=== PATIENT | female | born 1965 | race Caucasian/White ===

== ENCOUNTER 2018-01-11 15:21 | Emergency (ER) | payer MEDICAID ==
--- NOTE | 2018-01-11 16:16 | XRAY Report ---
EXAM: CHEST RADIOGRAPHY EXAM DATE: 01/11/2018 03:49 PM. CLINICAL HISTORY: Chest congestion. COMPARISON: 08/11/2008 and 12/09/2015. TECHNIQUE: 2 views. FINDINGS: Lungs/Pleura: No localized infiltrate, consolidation, effusion, or pneumothorax. Mediastinum: Heart and mediastinal contours are unremarkable. Other: Degenerative changes. Prominent carotid artery calcifications. IMPRESSION: 1. No acute disease. 2. Carotid calcifications; carotid duplex ultrasound is recommended. [facility] Referring Provider Line: [phone] SITE ID: [id number]
--- NOTE | 2018-01-11 17:35 | ED Physician Documentation ---
PD HPI ABD PAIN - Stated complaint Stated Complaint: ABD PX/BACK PX - Chief complaint Chief Complaint: General - History obtained from History obtained from: Patient - History of Present Illness Timing - onset: How many weeks ago (2) Timing - duration: Weeks (2) Timing - details: Gradual onset, Still present (she has had cough and congestion for 2 weeks, and having left lower abd pain as well. Seen by PMD and has had similar abd symptoms with then Dx of diverticulitis. Was treated empirically by PMD with Augmentin and has continued with both abd pain and the cough. Has been on the Augmentin about aweek now.), Waxing and waning Quality: Cramping, Aching, Pain Location: LLQ Radiation: Lower back. No: Left flank Improved by: No: Eating Worsened by: No: Eating Associated symptoms: Nausea, Other (cough). No: Fever, Vomiting, Diarrhea Similar symptoms before: Diagnosis (diverticulitis few times in the past that has felt like this. No prior lung problems.) Recently seen: Clinic Review of Systems Constitutional: denies: Fever, Chills Nose: denies: Rhinorrhea / runny nose, Congestion Throat: denies: Sore throat Cardiac: denies: Chest pain / pressure, Palpitations Respiratory: reports: Dyspnea, Cough. denies: Wheezing GI: reports: Abdominal Pain, Nausea. 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 Cardiovascular: Cardiac catheterization - Present Medications Home Medications: Ambulatory Orders Medication Instructions Recorded Confirmed Metformin HCl 500 mg PO BID 10/31/13 06/13/16 Omeprazole [PriLOSEC] 20 mg PO DAILY 10/31/13 06/13/16 Atorvastatin [Lipitor] 10 mg PO DAILY 04/09/14 06/13/16 Ibuprofen [Motrin] 800 mg PO Q8H PRN #30 tablet 12/09/15 06/13/16 Cephalexin [Keflex] 500 mg PO QID #24 capsule 06/13/16 Hydrocodone/Acetaminophen [[place] 1 each PO Q6H PRN #20 tablet 06/13/16 5-325 Tablet] Ibuprofen [Motrin] 600 mg PO TID #30 tab 06/13/16 Metoprolol Succinate [Toprol Xl] 1 tab ORAL DAILY 06/13/16 06/13/16 Metronidazole [Flagyl] 500 mg PO BID #14 tablet 06/13/16 Benzonatate [Tessalon] 100 mg PO TID PRN #25 capsule 01/11/18 Dexamethasone [Decadron] 4 mg PO DAILY #5 tablet 01/11/18 HYDROcod/ACETAM 5/325 [[place] 5/325] 1 tab PO Q6H PRN #15 tablet 01/11/18 Metronidazole [Flagyl] 500 mg PO BID #14 tablet 01/11/18 Ondansetron Odt [Zofran] 4 mg TL Q6H PRN #15 tablet 01/11/18 Sulfamethox/Trimeth 800/160 1 each PO BID #14 tablet 01/11/18 [Bactrim Ds 800/160] - Allergies Allergies/Adverse Reactions: Allergies Allergy/AdvReac Type Severity Reaction Status Date / Time fentanyl Allergy Intermediate Hives Verified 06/13/16 13:01 hydromorphone HCl * Allergy Unknown Verified 06/13/16 11:28 [From Dilaudid] - Social History Does the pt smoke?: No Smoking Status: Never smoker Does the pt drink ETOH?: Yes Does the pt have substance abuse?: No - Immunizations Immunizations are current?: Yes - POLST Patient has POLST: No PD ED PE NORMAL - Vitals Vital signs reviewed: Yes - General General: Alert and oriented X 3, No acute distress, Well developed/nourished - HEENT HEENT: Ears normal, Pharynx benign - Neck Neck: Supple, no meningeal sign, No adenopathy - Cardiac Cardiac: RRR, No murmur - Respiratory Respiratory: Clear bilaterally - Abdomen Abdomen: Normal bowel sounds, Soft, Non distended, No organomegaly, Other (some tenderness without guarding loeft lower to mid abdomen. ) - Female Female : Deferred - Rectal Rectal: Deferred - Back Back: No CVA TTP - Derm Derm: Normal color, Warm and dry, No rash - Extremities Extremities: No deformity, No edema Results - Vitals Vitals: Oxygen O2 Source Room air Oxygen Flow Rate 2 - Labs Labs: Laboratory Tests 01/11/18 01/11/18 18:14 18:14 WBC 11.7 H RBC 4.76 Hgb 13.7 Hct 41.6 MCV 87.3 MCH 28.8 MCHC 33.0 RDW 13.7 Plt Count 283 MPV 8.8 Neut # 7.4 H Lymph # 3.3 [place] # 0.8 Eos # 0.1 Baso # 0.1 Absolute Nucleated RBC 0.01 Nucleated RBC % 0.1 Sodium 136 Potassium 4.0 Chloride 97 L Carbon Dioxide 27 Anion Gap 12.0 BUN 10 Creatinine 0.5 Estimated GFR (MDRD) 129 Glucose 147 H Calcium 9.8 Total Bilirubin 0.4 AST 23 ALT 23 Alkaline Phosphatase 64 Total Protein 8.5 H Albumin 4.2 Globulin 4.3 H Albumin/Globulin Ratio 1.0 Lipase 20 L - Rads (name of study) abd CT Radiology: Prelim report reviewed (diverticula without obvious diverticulitis. Else normal. ) chest xray Radiology: Prelim report reviewed (no infiltrates.) PD MEDICAL DECISION MAKING - ED course Complexity details: reviewed results, considered differential (has been treated for diverticulitis and still hurting. CT shoiwing diverticula without obvious infection. However, she has elevated WBC and pain in the likely area, so presume partly treated diverticular episode. ), d/w patient Departure - Departure Disposition: 01 Home, Self Care Clinical Impression: Left sided abdominal pain, Diverticulitis Upper respiratory infection Qualifiers: URI type: unspecified URI Qualified Code(s): J06.9 - Acute upper respiratory infection, unspecified Condition: Stable Record reviewed to determine appropriate education?: Yes Instructions: ED Diverticulitis, ED URI Viral W Wheezing Follow-Up: Loc Trevino PA-C [Primary Care Provider] - Prescriptions: Benzonatate [Tessalon] 100 mg PO TID PRN #25 capsule PRN Reason: Cough Dexamethasone [Decadron] 4 mg PO DAILY #5 tablet HYDROcod/ACETAM 5/325 [[place] 5/325] 1 tab PO Q6H PRN #15 tablet PRN Reason: Pain Metronidazole [Flagyl] 500 mg PO BID #14 tablet Ondansetron Odt [Zofran] 4 mg TL Q6H PRN #15 tablet PRN Reason: Nausea / Vomiting Sulfamethox/Trimeth 800/160 [Bactrim Ds 800/160] 1 each PO BID #14 tablet Comments: For your cough and trouble breathing, use your albuterol inhaler 2 puffs 4 times a day for the next week or so. Add Decadron steroid anti-inflammatory to decrease irritation in the airways and also Tessalon if needed for cough. For the belly pain, presume that was diverticular consistent with prior episodes. The CT scan here looked okay without any signs of abscess or perforation. It did not show specific diverticulitis but that may be because the prior antibiotic was helping some. However since it still hurts will switch to Flagyl and Bactrim. Add hydrocodone if needed for pain. Follow-up with your primary care if not improving over the next 2-3 days. Discharge Date/Time: 01/11/18 22:45
[2018-01-11] MEDS ORDERED: ONDANSETRON 4 MG/2 ML VIAL IVP STA (17:50)
[2018-01-11] MEDS ORDERED: SODIUM CHLORIDE 0.9% 1,000 ML IV ONE (17:50)
[2018-01-11] MEDS ORDERED: MORPHINE 2 MG/ML CARPUJECT IVP STA ×2 (17:51→20:36)
[2018-01-11] MEDS ORDERED: KETOROLAC 30 MG/ML VIAL IVP STA (17:51)
[2018-01-11] MEDS ORDERED: DEXAMETHASONE 10 MG/ML VIAL IVP STA (17:51)
[2018-01-11] MEDS ORDERED: ALBUTEROL NEB 2.5 MG/3 ML INH STA (17:52)
[2018-01-11] MEDS ORDERED: SULFAMETH/TRIMETH DS 800/160 MG TABLET PO STA (17:52)
[2018-01-11] MEDS ORDERED: metroNIDAZOLE 500 MG/100 ML 500 MG/100 ML BAG IV ONE (17:52)
[2018-01-11 18:23] LABS: BASOPHILS # (AUTO) 0.1 10^3/uL (0.0-0.1); BASOPHILS % (AUTO) 1.1 %; EOSINOPHILS # (AUTO) 0.1 10^3/uL (0.0-0.7); EOSINOPHILS % (AUTO) 1.3 %; HGB - HEMOGLOBIN 13.7 g/dL (12.0-16.0); LYMPHOCYTES # (AUTO) 3.3 10^3/uL (1.5-3.5); LYMPHOCYTES % (AUTO) 28.2 %; MEAN CORPUSCULAR HEMOGLOBIN 28.8 pg (27.0-31.0); MEAN CORPUSCULAR VOLUME 87.3 fL (81.0-99.0); MEAN PLATELET VOLUME 8.8 fL (7.9-10.8); MONOCYTES # (AUTO) 0.8 10^3/uL (0.0-1.0); MONOCYTES % (AUTO) 6.6 %; NEUTROPHILS # (AUTO) 7.4 10^3/uL (1.5-6.6); NEUTROPHILS % (AUTO) 62.8 %; PLT - PLATELET COUNT 283 10^3/uL (130-450); RED BLOOD COUNT 4.76 10^6/uL (4.20-5.40); RED CELL DISTRIBUTION WIDTH 13.7 % (12.0-15.0); WHITE BLOOD COUNT 11.7 x10^3/uL (4.8-10.8)
[2018-01-11 18:36] LABS: ALBUMIN 4.2 g/dL (3.2-5.5); BILIRUBIN,TOTAL 0.4 mg/dL (0.2-1.0); CALCIUM 9.8 mg/dL (8.5-10.3); CREATININE 0.5 mg/dL (0.4-1.0); TOTAL PROTEIN 8.5 g/dL (6.7-8.2)
[2018-01-11] MEDS ORDERED: diphenhydrAMINE INJ 50 MG/ML VIAL IVP STA ×2 (19:10→20:36)
[2018-01-11] MEDS ORDERED: IOPAMIDOL-300 100 ML VIAL ONE (19:37)
[2018-01-11] MEDS ORDERED: IOPAMIDOL-300 100 ML VIAL IVP ONE (20:24)
--- NOTE | 2018-01-11 21:07 | CT Report ---
EXAM: CT ABDOMEN AND PELVIS EXAM DATE: 01/11/2018 07:59 PM. CLINICAL HISTORY: Left abd pain; h/o divertic. not improved 5d abx. COMPARISONS: 01/31/2015. TECHNIQUE: Routine helical CT imaging was performed through the abdomen and pelvis. IV contrast: 100 ML ISOVUE 300. Enteric contrast: No. Reconstructions: Coronal and sagittal. In accordance with CT protocol optimization, one or more of the following dose reduction techniques w ere utilized for this exam: automated exposure control, adjustment of mA and/or KV based on patient s ize, or use of iterative reconstructive technique. FINDINGS: Lung Bases: Unremarkable. Liver: Normal. No masses. Gallbladder/Bile Ducts: Gallbladder surgically absent, as before. No ductal dilatation. Spleen: Normal. Pancreas: Normal. Adrenal Glands: Normal. Kidneys: Tiny cysts medially at the upper pole of the left kidney. Right kidney unremarkable. No hydr onephrosis. Peritoneal Cavity/Bowel: Unopacified stomach and small bowel are nondistended. There is mild descendi ng and moderate sigmoid colon diverticulosis. There is no pericolonic fat stranding. There is no lymp hadenopathy, ascites, or pneumoperitoneum. Pelvic Organs: The bladder is unremarkable. Uterus is surgically absent. No adnexal masses are identi fied. Vasculature: Mitral annulus calcification. Mild aortoiliac atherosclerotic calcification without abno rmal dilation. Otherwise unremarkable. Bones: Mild multilevel lower thoracic degenerative disk disease. Moderate L5-S1 degenerative disk dis ease. Other: Prior anterior pelvic wall mesh repair without evidence of discrete hernia. Interval repair of the small fat-containing hernia seen before along the medial margin of the left rectus abdominis mus dena above the level of the umbilicus. IMPRESSION: 1. Mild descending and moderate sigmoid colon diverticulosis without brenda acute diverticulitis. 2. No clear findings to explain left-sided pain. [facility] Referring Provider Line: [phone] SITE ID: [id number]
--- NOTE | 2018-01-11 21:07 | CT Preliminary Report ---
Exam: CT ABDOMEN/PELVIS W/ IMPRESSION: 1. Mild descending and moderate sigmoid colon diverticulosis without brenda acute diverticulitis. 2. No clear findings to explain left-sided pain. [facility] SITE ID: [id number]
[2018-01-11 22:34] VITALS: BP 112/63
== END 2018-01-11 22:45 | disposition home or self-care (01) ==
LOC: ED 15:21
DX: K57.92 Diverticulitis of intestine, part unspecified, without perforation or abscess without bleeding (principal); J06.9 Acute upper respiratory infection, unspecified; D72.829 Elevated white blood cell count, unspecified; E11.9 Type 2 diabetes mellitus without complications; Z79.84 Long term (current) use of oral hypoglycemic drugs
CPT/HCPCS: 36415; 71046; 74177; 80053; 83690; 85025; 94640; 96365; 96375; 96376; 99283; 99284; A9270; J1200; Q9967

== ENCOUNTER 2018-01-12 08:00 | Outpatient (CLI) | payer MEDICAID ==
[2018-01-12 13:03] LABS: BASOPHILS % (AUTO) 0.3 %; HGB - HEMOGLOBIN 13.1 g/dL (12.0-16.0); LYMPHOCYTES # (AUTO) 1.5 10^3/uL (1.5-3.5); LYMPHOCYTES % (AUTO) 10.8 %; MEAN CORPUSCULAR HEMOGLOBIN 29.5 pg (27.0-31.0); MEAN CORPUSCULAR HGB CONC 33.5 g/dL (32.0-36.0); MEAN CORPUSCULAR VOLUME 88.1 fL (81.0-99.0); MEAN PLATELET VOLUME 9.5 fL (7.9-10.8); MONOCYTES # (AUTO) 0.6 10^3/uL (0.0-1.0); MONOCYTES % (AUTO) 4.2 %; NEUTROPHILS # (AUTO) 11.9 10^3/uL (1.5-6.6); NEUTROPHILS % (AUTO) 84.7 %; PLT - PLATELET COUNT 258 10^3/uL (130-450); RED BLOOD COUNT 4.43 10^6/uL (4.20-5.40); RED CELL DISTRIBUTION WIDTH 13.7 % (12.0-15.0); WHITE BLOOD COUNT 14.1 x10^3/uL (4.8-10.8)
[2018-01-12 13:07] LABS: HB2 TOTAL 14.4 g/dL; HEMOGLOBIN A1C 0.92 g/dL
[2018-01-12 13:18] LABS: ALBUMIN 3.9 g/dL (3.2-5.5); ALKALINE PHOSPHATASE 55 IU/L (42-121); ALT ALANINE AMINOTRANSFERASE 23 IU/L (10-60); AST ASPARTATE AMINOTRANSFERASE 30 IU/L (10-42); BILIRUBIN,TOTAL 0.4 mg/dL (0.2-1.0); BUN - BLOOD UREA NITROGEN 15 mg/dL (6-20); CALCIUM 9.6 mg/dL (8.5-10.3); CARBON DIOXIDE - CO2 22 mmol/L (21-32); CHLORIDE 101 mmol/L (101-111); CHOL/HDL RATIO 2.9 (<4.4); CHOLESTEROL 154 mg/dL; CREATININE 0.7 mg/dL (0.4-1.0); GFR - MDRD 88 (>89); GLUCOSE 221 mg/dL (70-100); HDL CHOLESTEROL 54 mg/dL; LDL CHOLESTEROL,CALCULATED 73 mg/dL; LDL/HDL RATIO 1.4 (<4.4); SODIUM 136 mmol/L (135-145); TOTAL PROTEIN 7.7 g/dL (6.7-8.2); VLDL CHOLESTEROL 27 mg/dL
== END 2018-01-12 08:01 | disposition home or self-care (01) ==
LOC: LAB.N 08:00
PROVIDERS: ATTEND Physician Assistant Medical
DX: Z00.00 Encounter for general adult medical examination without abnormal findings (principal); Z79.899 Other long term (current) drug therapy; E55.9 Vitamin D deficiency, unspecified
CPT/HCPCS: 36415; 80050; 80061; 82306; 83036; 83721

== ENCOUNTER 2018-03-02 20:34 | Outpatient (CLI) | payer MEDICAID ==
--- NOTE | 2018-03-05 17:49 | Ultrasound Report ---
CAROTID DUPLEX: 03/02/2018 CLINICAL INDICATION: Carotid artery calcification on chest x-ray. TECHNIQUE: Real-time sonographic vascular imaging was performed by the last sawyer through the carotid arteries utilizing both color-flow and Doppler spectral analysis. Multiple representative personal service static images were saved for review. RIGHT Vessel PSV cm/sec EDV cm/sec ICA/CCA RSV Ratio Degree of Stenosis Plaque Estimate % RCCA Prox 78.4 -- -- RCCA Dist 54.9 21.3 -- RECA 65.0 -- -- RT BULB 51.5 22.4 0.9 DONTA Prox 66.1 28.0 1.2 DONTA Mid 81.2 37.5 1.5 DONTA Dist 95.8 35.3 1.7 RVA 81.8 -- -- RVA flow direction: Antegrade LEFT Vessel PSV cm/sec EDV cm/sec ICA/CCA RSV Ratio Degree of Stenosis Plaque Estimate % LCCA Prox 93.3 -- -- LCCA Dist 61.2 22.4 -- LECA 112 -- -- LFT BULB 60.5 26.1 1.0 LICA Prox 39.5 16.4 0.7 LICA Mid 78 35 1.3 LICA Dist 81.6 37.5 1.3 LVA 69.3 -- -- LVA flow direction: Antegrade Velocity criteria are extrapolated from diameter data as defined by the Society of Radiologists in Ultrasound Consensus Conference Radiology 2003; 229; 340-346. Degree of Stenosis % ICA PSV cm/sec ICA EDV cm/sec ICA/CCA PSV Ratio Plaque Estimate % Normal < 125 < 40 < 2.0 None <50 < 125 < 40 < 2.0 < 50 50-69 125-130 40-100 2.0-4.0 >/=50 >/=70 but less than near occlusion > 230 > 100 > 4.0 >/=50 Near occlusion High, low or undetectable Variable Variable Visible Total occlusion Undetectable Not applicable Not applicable No detectable lumen FINDINGS RIGHT: There is mild calcified plaquing in right carotid bifurcation, without evidence of a focal hemodynamically significant stenosis. LEFT: There is mild calcified plaquing in the left carotid bifurcation, without evidence of a focal hemodynamically significant stenosis. The vertebral arteries demonstrate antegrade flow bilaterally. IMPRESSION: MILD PLAQUING BILATERALLY, WITHOUT EVIDENCE OF A FOCAL HEMODYNAMICALLY SIGNIFICANT CAROTID STENOSIS. TD: 03/03/2018 09:35 MTDReyna
== END 2018-03-02 20:35 | disposition home or self-care (01) ==
LOC: DI 20:34
PROVIDERS: ATTEND Physician Assistant Medical
DX: I65.23 Occlusion and stenosis of bilateral carotid arteries (principal)
CPT/HCPCS: 93880

== ENCOUNTER 2018-04-19 11:03 | Outpatient (CLI) | payer MEDICAID ==
[2018-04-19 12:30] LABS: BASOPHILS % (AUTO) 0.6 %; EOSINOPHILS # (AUTO) 0.2 10^3/uL (0.0-0.7); EOSINOPHILS % (AUTO) 2.3 %; HGB - HEMOGLOBIN 13.4 g/dL (12.0-16.0); LYMPHOCYTES # (AUTO) 2.4 10^3/uL (1.5-3.5); LYMPHOCYTES % (AUTO) 31.9 %; MEAN CORPUSCULAR HEMOGLOBIN 29.8 pg (27.0-31.0); MEAN CORPUSCULAR HGB CONC 33.1 g/dL (32.0-36.0); MEAN PLATELET VOLUME 9.8 fL (7.9-10.8); MONOCYTES # (AUTO) 0.6 10^3/uL (0.0-1.0); MONOCYTES % (AUTO) 7.8 %; NEUTROPHILS # (AUTO) 4.3 10^3/uL (1.5-6.6); NEUTROPHILS % (AUTO) 57.4 %; PLT - PLATELET COUNT 230 10^3/uL (130-450); RED BLOOD COUNT 4.49 10^6/uL (4.20-5.40); RED CELL DISTRIBUTION WIDTH 13.9 % (12.0-15.0); WHITE BLOOD COUNT 7.5 x10^3/uL (4.8-10.8)
[2018-04-19 12:42] LABS: HB2 TOTAL 14.5 g/dL; HEMOGLOBIN A1C 0.75 g/dL; HEMOGLOBIN A1C % 6.9 % (4.6-6.2)
== END 2018-04-19 11:04 | disposition home or self-care (01) ==
LOC: LAB.N 11:03
PROVIDERS: ATTEND Physician Assistant Medical
DX: E11.9 Type 2 diabetes mellitus without complications (principal)
CPT/HCPCS: 36415; 83036; 85025

== ENCOUNTER 2018-04-27 18:28 | Outpatient (CLI) | payer MEDICAID | END 2018-04-27 18:29 | disposition critical access hospital (66) | LOC: EMS 18:28 | PROVIDERS: ATTEND Surgery | DX: R10.11 Right upper quadrant pain (principal) | CPT/HCPCS: A0425; A0429 ==

== ENCOUNTER 2018-04-27 18:47 | Inpatient (IN) | payer MEDICAID ==
[2018-04-27 19:18] LABS: BASOPHILS # (AUTO) 0.1 10^3/uL (0.0-0.1); BASOPHILS % (AUTO) 0.9 %; EOSINOPHILS # (AUTO) 0.2 10^3/uL (0.0-0.7); EOSINOPHILS % (AUTO) 1.6 %; HGB - HEMOGLOBIN 15.3 g/dL (12.0-16.0); LYMPHOCYTES # (AUTO) 2.1 10^3/uL (1.5-3.5); LYMPHOCYTES % (AUTO) 17.6 %; MEAN CORPUSCULAR HEMOGLOBIN 29.4 pg (27.0-31.0); MEAN CORPUSCULAR HGB CONC 32.6 g/dL (32.0-36.0); MEAN CORPUSCULAR VOLUME 90.3 fL (81.0-99.0); MONOCYTES # (AUTO) 0.6 10^3/uL (0.0-1.0); MONOCYTES % (AUTO) 4.8 %; NEUTROPHILS % (AUTO) 75.1 %; PLT - PLATELET COUNT 261 10^3/uL (130-450); RED CELL DISTRIBUTION WIDTH 14.1 % (12.0-15.0)
[2018-04-27 19:31] LABS: ALBUMIN 4.3 g/dL (3.2-5.5); ALBUMIN/GLOBULIN RATIO 1.1 (1.0-2.2); BILIRUBIN,TOTAL 0.5 mg/dL (0.2-1.0); CALCIUM 9.2 mg/dL (8.5-10.3); CREATININE 0.6 mg/dL (0.4-1.0); TOTAL PROTEIN 8.2 g/dL (6.7-8.2)
[2018-04-27 20:24] LABS: BILIRUBIN,URINE NEGATIVE (NEGATIVE); GLUCOSE, URINE (UA) NEGATIVE (NEGATIVE); KETONES,URINE (UA) NEGATIVE (NEGATIVE); LEUKOCYTE ESTERASE, URINE NEGATIVE (NEGATIVE); NITRITE,URINE NEGATIVE (NEGATIVE); OCCULT BLOOD,URINE NEGATIVE (NEGATIVE); PH,URINE 8.5 PH (5.0-7.5); PROTEIN,URINE 30 mg/dL (NEGATIVE); UROBILINOGEN,URINE 0.2 (NORMAL) E.U./dL (NORMAL)
[2018-04-27 20:30] LABS: CLARITY,URINE CLEAR (CLEAR)
[2018-04-27 20:33] LABS: BACTERIA,URINE Few /HPF (None Seen); EPITHELIAL CELLS,UR FEW Transitional /HPF (<= Few); RBC,URINE 0-5 /HPF (0-5); SQUAMOUS EPITHELIAL CELL,UR FEW Squamous (<= Few)
[2018-04-27] MEDS ORDERED: IOPAMIDOL-300 100 ML VIAL ONE (20:44)
[2018-04-27] MEDS ORDERED: IOPAMIDOL-300 100 ML VIAL IVP ONE (21:12)
--- NOTE | 2018-04-27 21:43 | CT Report ---
Procedure Date: 04/27/2018 Accession Number: [id number] / [id number] Procedure: CT - Abdomen/Pelvis W/ CPT Code: FULL RESULT: EXAM: CT ABDOMEN AND PELVIS EXAM DATE: 04/27/2018 08:55 PM. CLINICAL HISTORY: Abdominal pain. COMPARISONS: CT abdomen/pelvis w/ 01/11/2018. TECHNIQUE: Routine helical CT imaging was performed through the abdomen and pelvis. IV contrast: 100 mL Isovue 300. Enteric contrast: No. Reconstructions: Coronal and sagittal. In accordance with CT protocol optimization, one or more of the following dose reduction techniques were utilized for this exam: automated exposure control, adjustment of mA and/or KV based on patient size, or use of iterative reconstructive technique. FINDINGS: Lung bases: No acute findings. Liver: Unremarkable. Gallbladder: Status post cholecystectomy. Bile ducts: Unremarkable. Pancreas: Unremarkable Spleen: Unremarkable. Adrenals: Unremarkable. Bowel: A couple of small left upper pole probable renal cysts. No hydronephrosis. Bowel: No evidence for bowel obstruction. Moderate sigmoid, mild descending and transverse diverticulosis. Small free fluid in the pelvis. Minimal perihepatic and perisplenic ascites. Moderate mesenteric fat edema is seen in the upper pelvis, new compared to the prior exam. Anterior pelvic ventral hernia repair with new anterior pelvic stranding superior to the mesh. Borderline dilated small bowel loop seen in the right side of the pelvis. Multiple fluid distended small bowel loops adjacent to this on the right side. Normal appendix. Pelvis: The bladder and remaining pelvic organs appear unremarkable. Status post hysterectomy. Vascular structures: No acute findings. No evidence for superior mesenteric artery or vein thrombosis. Bones: No acute bone findings. IMPRESSION: 1. New moderate mesenteric fat edema in the upper pelvis, uncertain etiology, can be seen with mesenteric panniculitis versus congestion versus fat strangulation. Single mildly dilated small bowel loop in the right side of the pelvis with fluid distended small bowel loops. Early obstruction is not excluded. Acute enteritis or ischemia is not excluded. 2. Normal appendix. Colonic diverticulosis. 3. See above. [facility] The above findings were discussed with Jeison Velasco by Dr. Leila Carson at 21:34 hrs on 04/27/18.
[2018-04-27] MEDS ORDERED: MORPHINE 10 MG/ML VIAL IVP STA (21:55)
--- NOTE | 2018-04-27 22:07 | ED Physician Documentation ---
PD HPI ABD PAIN - Stated complaint Stated Complaint: ABD PAIN - Chief complaint Chief Complaint: Abd Pain - History obtained from History obtained from: Patient - History of Present Illness Timing - onset: How many days ago (3) Timing - details: Gradual onset, Still present Quality: Cramping, Aching Location: RUQ, RLQ Associated symptoms: Nausea. No: Vomiting, Diarrhea Similar symptoms before: Work up / diagnostics Recently seen: Not recently seen - Additional information Additional information: Patient is a 53 year old female with a history of diabetes and cad with multiple prior abdominal surgeries who is presenting to the emergency department for abdominal pain. Patient states that it has been going on for the last few days. patient denies aggravating or alleviating factors and reports that it seems to come in waves. Review of Systems Ten Systems: 10 systems reviewed and negative Constitutional: denies: Fever, Chills GI: reports: Abdominal Pain, Nausea. 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, Hysterectomy Cardiovascular: Cardiac catheterization - Present Medications Home Medications: Ambulatory Orders Medication Instructions Recorded Confirmed Metformin HCl 500 mg PO BID 10/31/13 06/13/16 Omeprazole [PriLOSEC] 20 mg PO DAILY 10/31/13 06/13/16 Atorvastatin [Lipitor] 10 mg PO DAILY 04/09/14 06/13/16 Citalopram [CeleXA] 10 mg PO ONCE 04/27/18 04/27/18 - Allergies Allergies/Adverse Reactions: Allergies Allergy/AdvReac Type Severity Reaction Status Date / Time hydromorphone HCl * Allergy Unknown Verified 06/13/16 11:28 [From Dilaudid] - Social History Does the pt smoke?: No Smoking Status: Never smoker Does the pt drink ETOH?: Yes Does the pt have substance abuse?: No - Immunizations Immunizations are current?: Yes - POLST Patient has POLST: No PD ED PE NORMAL - Vitals Vital signs reviewed: Yes - General General: Alert and oriented X 3 - HEENT HEENT: Atraumatic - Neck Neck: Supple, no meningeal sign - Cardiac Cardiac: RRR - Respiratory Respiratory: No respiratory distress - Derm Derm: Normal color, Warm and dry - Extremities Extremities: No deformity - Neuro Neuro: Alert and oriented X 3 Eye Opening: Spontaneous PD ED PE EXPANDED - HEENT HEENT: Dry mucous membranes - Abdomen Abdomen: Tender to palpation, Guarding, Right abd, Generalized/diffuse. No: Rebound Results - Vitals Vitals: Vital Signs - 24 hr 04/27/18 04/27/18 18:51 22:03 Temperature 35.8 C L Heart Rate 95 86 Respiratory 18 15 Rate Blood Pressure 161/74 H 135/79 H O2 Saturation 98 92 Oxygen O2 Source Room air - Labs Labs: Laboratory Tests 04/27/18 04/27/18 04/27/18 19:14 19:14 20:21 WBC 12.0 H RBC 5.20 Hgb 15.3 Hct 47.0 MCV 90.3 MCH 29.4 MCHC 32.6 RDW 14.1 Plt Count 261 MPV 9.0 Neut # (Auto) 9.0 H Lymph # (Auto) 2.1 [place] # (Auto) 0.6 Eos # (Auto) 0.2 Baso # (Auto) 0.1 Absolute Nucleated RBC 0.01 Nucleated RBC % 0.1 Sodium 135 Potassium 4.6 Chloride 101 Carbon Dioxide 25 Anion Gap 9.0 BUN 10 Creatinine 0.6 Estimated GFR (MDRD) 104 Glucose 164 H Calcium 9.2 Total Bilirubin 0.5 AST 26 ALT 23 Alkaline Phosphatase 69 Total Protein 8.2 Albumin 4.3 Globulin 3.9 Albumin/Globulin Ratio 1.1 Lipase 24 Urine Color YELLOW Urine Clarity CLEAR Urine pH 8.5 H Ur Specific [place] 1.010 Urine Protein 30 H Urine Glucose (UA) NEGATIVE Urine Ketones NEGATIVE Urine Occult Blood NEGATIVE Urine Nitrite NEGATIVE Urine Bilirubin NEGATIVE Urine Urobilinogen 0.2 (NORMAL) Ur Leukocyte Esterase NEGATIVE Urine RBC 0-5 Urine WBC 6-10 H Ur Epithelial Cells FEW Transitional Ur Squamous Epith Cells FEW Squamous Urine Bacteria Few Ur Microscopic Review INDICATED Urine Culture Comments INDICATED - Rads (name of study) ct abd pelvis Radiology: Final report received, Discussed with rads (diffuse mesenteric stranding, multiple possible etiologies) PD MEDICAL DECISION MAKING - ED course Complexity details: reviewed old records, reviewed results, re-evaluated patient , considered differential, d/w patient, d/w career consultant ED course: Patient was seen and examined at bedside. IV access was gained and labs were drawn. urine was collected and imaging was ordered. When patient returned from imaging she was treated with morphine for pain. labs and imaging were reviewed. Imaging results were discussed with radiologist and there was abnormal fat stranding of unknown etiology. Case was discussed with coal gasification technician surgeon, Dr. Garnett who stated that the patient should be placed in observation and have abdominal series performed in the morning. Case was discussed with the hospitalist who accepted the patient. - Sepsis Event Vital Signs: Vital Signs - 24 hr 04/27/18 04/27/18 18:51 22:03 Temperature 35.8 C L Heart Rate 95 86 Respiratory 18 15 Rate Blood Pressure 161/74 H 135/79 H O2 Saturation 98 92 Oxygen O2 Source Room air Departure - Departure Disposition: ED Place in Observation Clinical Impression: Abdominal pain Condition: Stable Discharge Date/Time: 04/27/18 23:22
[2018-04-27] MEDS ORDERED: oxyCODONE 5 MG TABLET PO PRN (22:17)
[2018-04-27] MEDS ORDERED: PROCHLORPERAZINE 10 MG/2 ML VIAL IVP PRN (22:17)
[2018-04-27] MEDS ORDERED: PROMETHAZINE 25 MG/1 ML VIAL IM PRN (22:17)
[2018-04-27] MEDS ORDERED: ACETAMINOPHEN 325 MG TABLET PO PRN (22:17)
[2018-04-27] MEDS ORDERED: SODIUM CHLORIDE 0.9% 1,000 ML IV ONE (22:53)
[2018-04-27] MEDS ORDERED: ONDANSETRON 4 MG/2 ML VIAL IVP STA (22:53)
[2018-04-27] MEDS ORDERED: CITALOPRAM 10 MG TABLET PO SCH (23:00)
[2018-04-27] MEDS ORDERED: metroNIDAZOLE 500 MG/100 ML 500 MG/100 ML BAG IV SCH (23:00)
--- NOTE | 2018-04-27 23:38 | HISTORY & PHYSICAL EXAMINATION ---
Chief Complaint - Chief Complaint Chief Complaint: Abdominal Pain History of Present Illness - Admitted From Admitted From:: Emergency Department - History Obtained From Records Reviewed: Yes History obtained from: Patient Exam Limitations: None - History of Present Illness HPI Comment/Other: Patient is a 53-year-old female with a past medical history significant for diabetes mellitus type II, coronary artery disease with a non-ST elevation [place] in 2013 for clean coronary artery angiogram, depression, anxiety, GERD, osteoarthritis, history of diverticulitis, chronic back pain and multiple hernia repairs and multiple bowel obstructions with multiple abdominal surgeries who presents to the emergency department with a chief complaint of abdominal pain. The patient states that she was in her normal state of health until early this morning when she began having sharp pains in her abdomen. She states that the pain was coming in waves. She states that the pain initially started just lateral to her umbilicus on the right side and radiated up to the right upper quadrant and then down to the right lower quadrant. She states that the pain was moving down into the groin area. She states at its worst the pain was a 10 out of 10 and was gradually worsening throughout the day and becoming more and more frequent. She states that she has had pain like this before but it usually resolves on its own at home and does not get this severe. She states that she continued to feel nauseated all day but could not vomit. She states that she had several very small bowel movements that were runny stools but feels as though her abdomen is distended and she is constipated. She states that she also had chills but no fever. The patient denies any dysuria, hematuria or any increased urinary frequency. The patient denies any chest pain. The patient denies any lower extremity swelling. Patient denies any headaches, blurred vision, runny nose, sore throat, nasal congestion, difficulty swallowing, chest pain, shortness of breath, orthopnea, PND, increased lower extremity swelling, joint pain, joint swelling, muscle aches, back pain, neck stiffness, recent unintentional weight loss, changes in her appetite, skin changes, hair loss, polydipsia, polyuria, night sweats or any focal neurologic deficits. On presentation to the emergency department the patient was afebrile, her heart rate was in the high 90s and she was hypertensive but not in any respiratory distress. The patient did appear to be in pain in the emergency department and was given a dose of IV morphine. The patient states that her pain did become significantly better after getting the morphine but then started up again a few hours later. The patient was also nauseated and given Zofran as well as IV fluids. The patient's lab work did reveal a mild leukocytosis of 12,000. The patient's electrolytes were all within normal limits. The patient's urine analysis showed 6-10 WBCs with few bacteria but a negative leukocyte esterase and nitrite. The patient underwent a CT of her abdomen and pelvis which revealed new moderate mesenteric fat edema in the upper pelvis, uncertain etiology, can be seen with mesenteric panniculitis versus congestion versus fat strangulation. A single mildly dilated small bowel loop was seen in the right side of the pelvis with fluid distended small bowel loops. Early obstruction is not excluded. Acute enteritis or ischemia was also not excluded. Given these findings on CT scan the emergency room physician spoke with the surgeon credit and collections representative Dr. Garnett. He asked that the patient be admitted by the hospitalist service and be treated medically for possible bowel obstruction. He asked for a repeat CT with oral contrast and said that he would follow the patient in consultation. History - Past Medical History Cardiovascular: reports: Coronary artery disease, Other Respiratory: reports: Asthma Endocrine/Autoimmune: reports: Type 2 diabetes GI: reports: GERD, Hiatal hernia, Other (Multiple bowel obstructions and multiple abdominal surgeries) : reports: None HEENT: reports: None Psych: reports: None Musculoskeletal: reports: Osteoarthritis, Chronic back pain Derm: reports: None MRSA Hx?: No - Past Surgical History General: reports: Cholecystectomy, Hiatal hernia repair Ortho: reports: Carpal Tunnel surgery /RELIGIOUS ACTIVITIES DIRECTOR: reports: section, Hysterectomy Cardiovascular: reports: Cardiac catheterization - Family & Social History Family History: Mother: Diabetes, Type 2 Living arrangement: At home Living Situation: Alone Social History Notes: Patient has been living on [facility] for the last 37 years. She is originally from [place]. She has 1 daughter. She is . 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 She is a former smoker and smoked half a pack to 1 pack per day for about 40 years. She does drink wine states that she drinks about a bottle of wine a week. She denies any illicit drug use. - POLST Patient has POLST: No POLST Status: Full Code Meds/Allgy - Home Medications Home Medications: Ambulatory Orders Medication Instructions Recorded Confirmed Omeprazole [PriLOSEC] 20 mg PO DAILY 10/31/13 06/13/16 RX: Metformin HCl 500 mg PO BID 10/31/13 06/13/16 RX: Atorvastatin [Lipitor] 10 mg PO DAILY 04/09/14 06/13/16 Citalopram [CeleXA] 10 mg PO ONCE 04/27/18 04/27/18 - Allergies Allergies/Adverse Reactions: Allergies Allergy/AdvReac Type Severity Reaction Status Date / Time hydromorphone HCl * Allergy Unknown Verified 06/13/16 11:28 [From Dilaudid] Review of Systems - Other Findings Other Findings: A comprehensive review of systems was performed the pertinent positives and negatives are stated above in the HPI and the remainder of the review of systems is negative. Exam - Vital Signs Reviewed Vital Signs: Yes - Physical Exam General Appearance: positive: Alert, Mild distress (In pain), Anxious Eyes Bilateral: positive: Normal inspection, PERRL, EOMI, No lid inflammation, Conjunctivae nml, No scleral icterus ENT: positive: ENT inspection nml, Pharynx nml, Dry mucous membranes. negative : Purulent nasal drainage, Pharyngeal erythema, Oral lesions Neck: positive: Nml inspection, Thyroid nml, No JVD, Trachea midline. negative : Thyromegaly, Lymphadenopathy (R), Lymphadenopathy (L), Stiff neck, Carotid bruit, Tracheal deviation Respiratory: positive: Chest non-tender, No respiratory distress, Breath sounds nml. negative: Wheezes, Rales, Rhonchi Cardiovascular: positive: Regular rate & rhythm, No murmur, No gallop Peripheral Pulses: positive: 2+ Abdomen: positive: No organomegaly, Tenderness (diffuse), Abnml bowel sounds ( Decreased), Other (Distended abdomen). negative: Guarding, Rebound, Hepatomegaly Back: positive: Nml inspection. negative: CVA tenderness (R), CVA tenderness (L ) Skin: positive: Color nml, No rash, Warm, Dry. negative: Cyanosis, Diaphoresis , Pallor, Skin rash Extremities: positive: Non-tender, Full ROM, Nml appearance, No pedal edema Neurologic/Psychiatric: positive: Oriented x3, CN's nml (2-12), Motor nml, Sensation nml, Mood/affect nml Conclusion/Plan - Problem List (1) Abdominal pain Conclusion/Plan: Patient has history of multiple abdominal surgeries including repair of 2 hernias and small bowel obstructions. She presented to the emergency department with 1 day of abdominal pain which was located mostly on the right side moving up and down the right abdomen. Pain was severe and progressively worsening throughout the day. She had associated nausea and chills. Patient was having small watery bowel movements but felt constipated and abdomen was distended. Patient's exam revealed diffuse tenderness and a distended abdomen. CT of the abdomen showed new moderate mesenteric fat edema in the upper pelvis , uncertain etiology, can be seen with mesenteric panniculitis versus congestion versus fat strangulation. Single mildly dilated small bowel loop in the right side of the pelvis with fluid distended small bowel loops. Early obstruction is not excluded. Acute enteritis or ischemia is not excluded. Plan: Surgery consulted Surgery requests repeat CT scan with oral contrast Surgery states that if patient has significant obstruction requiring surgery patient will likely need transfer due to history of previous surgeries. Surgery will consider small bowel follow-through if CT is inconclusive. N.p.o. IV fluids IV Cipro and Flagyl Pain control with IV morphine Nausea control with IV antiemetics Monitor closely Qualifiers: Abdominal location: generalized Qualified Code(s): R10.84 - Generalized abdominal pain (2) Diabetes Conclusion/Plan: Patient has a history of type 2 diabetes and is on metformin at home. Since patient will be n.p.o. while she is here she will be placed on n.p.o. sliding scale insulin. We will check a hemoglobin A1c. We will monitor patient's blood glucose 4 times a day. Qualifiers: Diabetes mellitus type: type 2 Diabetes mellitus exterminator helper insulin use: without skilled nursing use Diabetes mellitus complication status: without complication Qualified Code(s): E11.9 - Type 2 diabetes mellitus without complications (3) Anxiety and depression Conclusion/Plan: Patient has a history of anxiety and depression and takes Celexa at home. Patient will be continued on her home dose of Celexa while she is hospitalized. Currently the patient's mood appears to be stable. (4) GERD (gastroesophageal reflux disease) Conclusion/Plan: Patient is a history of GERD and uses Prilosec at home. While the patient is hospitalized she will be placed on IV Pepcid. Qualifiers: Esophagitis presence: without esophagitis Qualified Code(s): K21.9 - Gastro -esophageal reflux disease without esophagitis (5) Hyperlipidemia Conclusion/Plan: Patient has a history of hyperlipidemia with history of a NSTEMI but a clean cardiac cath. She is currently on Lipitor at home. We will continue the patient's home dose of Lipitor while she is hospitalized. Qualifiers: Hyperlipidemia type: unspecified Qualified Code(s): E78.5 - Hyperlipidemia , unspecified - Lab Results Lab results reviewed: Yes Fish Bones: 04/27/18 19:14 04/27/18 19:14 Other Lab Results: Laboratory Results WBC 12.0 x10^3/uL (4.8-10.8) H 04/27/18 19:14 RBC 5.20 10^6/uL (4.20-5.40) 04/27/18 19:14 Hgb 15.3 g/dL (12.0-16.0) 04/27/18 19:14 Hct 47.0 % (37.0-47.0) 04/27/18 19:14 MCV 90.3 fL (81.0-99.0) 04/27/18 19:14 MCH 29.4 pg (27.0-31.0) 04/27/18 19:14 MCHC 32.6 g/dL (32.0-36.0) 04/27/18 19:14 RDW 14.1 % (12.0-15.0) 04/27/18 19:14 Plt Count 261 10^3/uL (130-450) 04/27/18 19:14 MPV 9.0 fL (7.9-10.8) 04/27/18 19:14 Neut # (Auto) 9.0 10^3/uL (1.5-6.6) H 04/27/18 19:14 Lymph # (Auto) 2.1 10^3/uL (1.5-3.5) 04/27/18 19:14 [place] # (Auto) 0.6 10^3/uL (0.0-1.0) 04/27/18 19:14 Eos # (Auto) 0.2 10^3/uL (0.0-0.7) 04/27/18 19:14 Baso # (Auto) 0.1 10^3/uL (0.0-0.1) 04/27/18 19:14 Absolute Nucleated RBC 0.01 x10^3/uL 04/27/18 19:14 Nucleated RBC % 0.1 /100WBC 04/27/18 19:14 Sodium 135 mmol/L (135-145) 04/27/18 19:14 Potassium 4.6 mmol/L (3.5-5.0) 04/27/18 19:14 Chloride 101 mmol/L (101-111) 04/27/18 19:14 Carbon Dioxide 25 mmol/L (21-32) 04/27/18 19:14 Anion Gap 9.0 (6-13) 04/27/18 19:14 BUN 10 mg/dL (6-20) 04/27/18 19:14 Creatinine 0.6 mg/dL (0.4-1.0) 04/27/18 19:14 Estimated GFR (MDRD) 104 (>89) 04/27/18 19:14 Glucose 164 mg/dL (70-100) H 04/27/18 19:14 Calcium 9.2 mg/dL (8.5-10.3) 04/27/18 19:14 Total Bilirubin 0.5 mg/dL (0.2-1.0) 04/27/18 19:14 AST 26 IU/L (10-42) 04/27/18 19:14 ALT 23 IU/L (10-60) 04/27/18 19:14 Alkaline Phosphatase 69 IU/L (42-121) 04/27/18 19:14 Total Protein 8.2 g/dL (6.7-8.2) 04/27/18 19:14 Albumin 4.3 g/dL (3.2-5.5) 04/27/18 19:14 Globulin 3.9 g/dL (2.1-4.2) 04/27/18 19:14 Albumin/Globulin Ratio 1.1 (1.0-2.2) 04/27/18 19:14 Lipase 24 U/L (22-51) 04/27/18 19:14 Urine Color YELLOW 04/27/18 20:21 Urine Clarity CLEAR (CLEAR) 04/27/18 20:21 Urine pH 8.5 PH (5.0-7.5) H 04/27/18 20:21 Ur Specific [place] 1.010 (1.002-1.030) 04/27/18 20:21 Urine Protein 30 mg/dL (NEGATIVE) H 04/27/18 20:21 Urine Glucose (UA) NEGATIVE mg/dL (NEGATIVE) 04/27/18 20:21 Urine Ketones NEGATIVE mg/dL (NEGATIVE) 04/27/18 20:21 Urine Occult Blood NEGATIVE (NEGATIVE) 04/27/18 20:21 Urine Nitrite NEGATIVE (NEGATIVE) 04/27/18 20:21 Urine Bilirubin NEGATIVE (NEGATIVE) 04/27/18 20:21 Urine Urobilinogen 0.2 (NORMAL) E.U./dL (NORMAL) 04/27/18 20:21 Ur Leukocyte Esterase NEGATIVE (NEGATIVE) 04/27/18 20:21 Urine RBC 0-5 /HPF (0-5) 04/27/18 20:21 Urine WBC 6-10 /HPF (0-5) H 04/27/18 20:21 Ur Epithelial Cells FEW Transitional /HPF (<= Few) 04/27/18 20:21 Ur Squamous Epith Cells FEW Squamous (<= Few) 04/27/18 20:21 Urine Bacteria Few /HPF (None Seen) 04/27/18 20:21 Ur Microscopic Review INDICATED 04/27/18 20:21 Urine Culture Comments INDICATED 04/27/18 20:21 - Diagnostic Imaging Results Diagnostic Imaging Results: positive: Final report reviewed Diagnostic Imaging Results Comments: EXAM: [id number] CT/ABPEW ([id number]) Procedure Date: 04/27/2018 Accession Number: [id number] / [id number] Procedure: CT - Abdomen/Pelvis W/ CPT Code: FULL RESULT: EXAM: CT ABDOMEN AND PELVIS EXAM DATE: 04/27/2018 08:55 PM. CLINICAL HISTORY: Abdominal pain. COMPARISONS: CT abdomen/pelvis w/ 01/11/2018. TECHNIQUE: Routine helical CT imaging was performed through the abdomen and pelvis. IV contrast: 100 mL Isovue 300. Enteric contrast: No. Reconstructions: Coronal and sagittal. In accordance with CT protocol optimization, one or more of the following dose reduction techniques were utilized for this exam: automated exposure control, adjustment of mA and/or KV based on patient size, or use of iterative reconstructive technique. FINDINGS: Lung bases: No acute findings. Liver: Unremarkable. Gallbladder: Status post cholecystectomy. Bile ducts: Unremarkable. Pancreas: Unremarkable Spleen: Unremarkable. Adrenals: Unremarkable. Bowel: A couple of small left upper pole probable renal cysts. No hydronephrosis. Bowel: No evidence for bowel obstruction. Moderate sigmoid, mild descending and transverse diverticulosis. Small free fluid in the pelvis. Minimal perihepatic and perisplenic ascites. Moderate mesenteric fat edema is seen in the upper pelvis, new compared to the prior exam. Anterior pelvic ventral hernia repair with new anterior pelvic stranding superior to the mesh. Borderline dilated small bowel loop seen in the right side of the pelvis. Multiple fluid distended small bowel loops adjacent to this on the right side. Normal appendix. Pelvis: The bladder and remaining pelvic organs appear unremarkable. Status post hysterectomy. Vascular structures: No acute findings. No evidence for superior mesenteric artery or vein thrombosis. Bones: No acute bone findings. IMPRESSION: 1. New moderate mesenteric fat edema in the upper pelvis, uncertain etiology, can be seen with mesenteric panniculitis versus congestion versus fat strangulation. Single mildly dilated small bowel loop in the right side of the pelvis with fluid distended small bowel loops. Early obstruction is not excluded. Acute enteritis or ischemia is not excluded. 2. Normal appendix. Colonic diverticulosis. 3. See above. - EKG Results EKG Interpreted Independently: No Core Measures - Anticipated LOS I expect patient to be DC'd or transferred within 96 hours.: Yes - DVT/VTE - Prophylaxis VTE/DVT Prophylaxis med ordered at admit?: Yes
[2018-04-27] MEDS: oxyCODONE 5 MG TABLET PO PRN (23:53)
[2018-04-27] MEDS: ZOLPIDEM 5 MG TABLET PO PRN (23:54)
[2018-04-28] MEDS: INSULIN REGULAR HUMAN 100 UNIT/1 ML 10 ML MDV SUBQ SCH ×3 (00:07→11:25)
[2018-04-28] MEDS: MORPHINE 2 MG/ML SYRINGE IVP PRN ×7 (00:15→19:03)
[2018-04-28] MEDS: SODIUM CHLORIDE FLUSH 0.9% 10 ML SYRINGE IVP SCH ×3 (00:16→17:08)
[2018-04-28] MEDS ORDERED: IOPAMIDOL-300 50 ML VIAL ONE (00:22)
[2018-04-28] MEDS: CIPROFLOXACIN 400 MG/200 ML 200 ML IV SCH ×3 (01:06→22:36)
[2018-04-28] MEDS: SODIUM CHLORIDE FLUSH 0.9% 10 ML SYRINGE IVP PRN ×2 (02:12→05:45)
[2018-04-28] MEDS ORDERED: IOPAMIDOL-300 50 ML VIAL PO ONE (02:47)
[2018-04-28] MEDS: SODIUM CHLORIDE 0.9% 1,000 ML IV SCH ×2 (03:52→15:40)
[2018-04-28] MEDS: oxyCODONE 5 MG TABLET PO PRN ×2 (04:00→17:29)
--- NOTE | 2018-04-28 04:39 | CT Report ---
Procedure Date: 04/28/2018 Accession Number: [id number] / [id number] Procedure: CT - Abdomen/Pelvis W/O CPT Code: FULL RESULT: EXAM: CT ABDOMEN AND PELVIS EXAM DATE: 04/28/2018 02:37 AM. CLINICAL HISTORY: Abdominal pain possible obstruction. COMPARISONS: 04/27/2018. TECHNIQUE: Routine helical CT imaging was performed through the abdomen and pelvis. IV contrast: None. Enteric contrast: No. Reconstructions: Coronal and sagittal. In accordance with CT protocol optimization, one or more of the following dose reduction techniques were utilized for this exam: automated exposure control, adjustment of mA and/or KV based on patient size, or use of iterative reconstructive technique. FINDINGS: Lung Bases: Minimal bibasilar atelectasis. Coronary artery calcifications. Mitral annulus calcification. Liver: No focal abnormality seen on this noncontrast examination. Gallbladder/Bile Ducts: Unremarkable. Spleen: Normal. Pancreas: Normal. Adrenal Glands: Normal. Kidneys: Small left renal cysts. No masses or hydronephrosis. Peritoneal Cavity/Bowel: No bowel obstruction seen. Colonic diverticula. No obvious diverticulitis. There are some possible thickened small bowel loops with mesenteric edema. Findings could represent enteritis. Trace amount of ascites. No free air. No lymphadenopathy. Appendix appears normal. Pelvic Organs: Uterus is not seen. Visualized pelvic organs are otherwise unremarkable. Excreted contrast in the urinary tract. Vasculature: Mild atherosclerosis. No aortic aneurysm. Bones: Degenerative changes at L5-S1. Other: Ventral hernia repair. IMPRESSION: 1. No bowel obstruction seen. 2. Possible mild wall thickening in some of the small bowel loops. There is associated mesenteric edema. Enteritis could have this appearance. 3. Colonic diverticula are seen. No diverticulitis identified. No appendicitis. 4. Trace amount of ascites. RADIA
[2018-04-28 06:21] LABS: BASOPHILS # (AUTO) 0.1 10^3/uL (0.0-0.1); BASOPHILS % (AUTO) 0.7 %; EOSINOPHILS # (AUTO) 0.2 10^3/uL (0.0-0.7); EOSINOPHILS % (AUTO) 2.3 %; HGB - HEMOGLOBIN 13.2 g/dL (12.0-16.0); LYMPHOCYTES # (AUTO) 2.4 10^3/uL (1.5-3.5); LYMPHOCYTES % (AUTO) 25.4 %; MEAN CORPUSCULAR HEMOGLOBIN 29.8 pg (27.0-31.0); MEAN CORPUSCULAR HGB CONC 32.6 g/dL (32.0-36.0); MEAN CORPUSCULAR VOLUME 91.5 fL (81.0-99.0); MONOCYTES # (AUTO) 0.7 10^3/uL (0.0-1.0); MONOCYTES % (AUTO) 7.1 %; NEUTROPHILS # (AUTO) 6.1 10^3/uL (1.5-6.6); NEUTROPHILS % (AUTO) 64.5 %; PLT - PLATELET COUNT 216 10^3/uL (130-450); RED BLOOD COUNT 4.43 10^6/uL (4.20-5.40); RED CELL DISTRIBUTION WIDTH 13.6 % (12.0-15.0); WHITE BLOOD COUNT 9.4 x10^3/uL (4.8-10.8)
[2018-04-28 06:28] LABS: PT - PROTHROMBIN TIME 11.1 secs (9.9-12.6)
[2018-04-28 06:37] LABS: ALBUMIN 3.4 g/dL (3.2-5.5); BILIRUBIN,TOTAL 0.4 mg/dL (0.2-1.0); CREATININE 0.7 mg/dL (0.4-1.0); MAGNESIUM 1.8 mg/dL (1.7-2.8); PHOSPHORUS 4.2 mg/dL (2.5-4.6); TOTAL PROTEIN 6.9 g/dL (6.7-8.2)
[2018-04-28 07:20] LABS: HB2 TOTAL 14.6 g/dL; HEMOGLOBIN A1C 0.77 g/dL
--- NOTE | 2018-04-28 08:32 | XRAY Report ---
Procedure Date: 04/28/2018 Accession Number: [id number] / [id number] Procedure: XR - Abdomen Acute CPT Code: FULL RESULT: EXAM: Abdomen Acute DATE: 04/28/2018 8:17 AM CLINICAL HISTORY: POSSIBLE SBO, ABDOMINAL PAIN COMPARISON: CT 04/28/2018 TECHNIQUE: 2 views abdomen and 1 view chest. FINDINGS: CHEST: Lungs/Pleura: Minimal atelectasis. No effusion or pneumothorax. Mediastinum: Within exam limitations, cardiomediastinal contour is normal. ABDOMEN: Bowel Gas Pattern: Within normal limits. No dilated loops or abnormal fluid levels. Free Air: None. Other: Oral contrast now seen throughout the colon, excluding obstruction. IMPRESSION: Minimal left lung atelectasis. No evidence of bowel obstruction or perforation. RADIA
--- NOTE | 2018-04-28 08:46 | CONSULTATION NOTE ---
DATE OF SERVICE: 04/27/2018 Physician: Rojelio Garnett MD REFERRING PHYSICIAN: Dr. Costa REASON FOR REFERRAL: Abdominal pain. HISTORY OF PRESENT ILLNESS: The patient is a 53-year-old female with multiple medical problems. Her history is significant for undergoing at least 4 ventral hernia repairs with mesh. She has had laparoscopic. Her last hernia surgery was around 2013 at . She had a ventral hernia repair of unknown type and an abdominoplasty. She now presents with severe abdominal pain on the right side starting the morning of admission. She has nausea, but no vomiting. She has not had a bowel movement for 2 days. This is the first type of pain that she has had in a long time. She has not had any fever or chills. PAST MEDICAL AND SURGICAL HISTORY 1. Ventral incisional hernia x4. 2. Hiatal hernia repair. 3. Carpal tunnel surgery. 4. Cholecystectomy. 5. Appendectomy. 6. Hysterectomy. 7. x1. 8. Cardiac catheterization. SOCIAL HISTORY: The patient lives alone and is . PAST MEDICAL HISTORY 1. Diabetes. 2. Coronary artery disease. 3. Asthma. 4. Obesity. 5. Gastroesophageal reflux disease. 6. Arthritis. 7. Chronic back pain. HABITS: The patient socially uses alcohol, and has quit smoking. Denies any drug use. MEDICATIONS 1. Omeprazole. 2. Metformin. 3. Lipitor. 4. Celexa. ALLERGIES: DILAUDID. REVIEW OF SYSTEMS A complete review of systems obtained. Pertinent positives are abdominal pain and nausea. PULMONARY: Shortness of breath. A 12-point review of systems was obtained with pertinent positives discussed and all others being negative. PHYSICAL EXAMINATION VITAL SIGNS: Temperature is 35.8, pulse 95, blood pressure 161/74. GENERAL: The patient is lying in bed. She is cooperative and appears to answer questions fully. Mild distress secondary to her abdominal pain. EYES: Nonicteric. NECK: No lymphadenopathy. HEART: Regular. LUNGS: Clear. BACK: Nontender. ABDOMEN: Soft, some tenderness right of the umbilical area. No hernias. She has a lower midline abdominal incisional scar. She does have a small lump in the scar most likely secondary to previous sutures. No other masses. EXTREMITIES: No edema, no cyanosis. NEUROLOGIC: The patient appears to be neurologically intact without any deficit. PSYCHOLOGIC: The patient is coherent, cooperative, and appears to answer questions fully. DIAGNOSTIC DATA CT scan of the abdomen and pelvis shows some thickening of the mesentery of unknown significance. There is mildly dilated bowel also of unknown significance. There does not appear to be any bowel obstruction or recurrent hernia at the current time. White blood cell count of 12, creatinine of 0.7. ASSESSMENT 1. Abdominal pain of unknown etiology. The patient's CT scan does show some mesentery irritation of unknown significance. There does not appear to be any recurrent hernia. CT scan was done without oral contrast. I recommend repeating the CT scan with oral contrast at this time. 2. Gastroesophageal reflux disease, on antireflux medication. 3. Asthma, on inhalers. 4. Diabetes on antidiabetes medications. PLAN 1. NPO. 2. IV fluids. 3. CT scan of the abdomen and pelvis repeat with oral contrast. TD: 04/28/2018 07:56 BARBARA
[2018-04-28] MEDS: metroNIDAZOLE 500 MG/100 ML 500 MG/100 ML BAG IV SCH ×2 (08:50→17:24)
[2018-04-28] MEDS: ONDANSETRON 4 MG/2 ML VIAL IVP PRN ×2 (08:50→17:24)
[2018-04-28] MEDS ORDERED: ATORVASTATIN 10 MG TABLET PO SCH ×2 (09:00→09:49)
[2018-04-28] MEDS: POLYETHYLENE GLYCOL 3350 17 GM PACKET PO SCH (09:11)
[2018-04-28] MEDS: ENOXAPARIN 40 MG/0.4 ML SYRINGE SUBQ SCH (09:37)
[2018-04-28] MEDS: FAMOTIDINE 20 MG/50 ML 50 ML IV SCH ×2 (09:37→20:51)
--- NOTE | 2018-04-28 12:20 | PROVIDER PROGRESS NOTE ---
Subjective - Prog Note Date Prog Note Date: 04/28/18 Prog Note Time: 10:45 - Subjective Pt reports feeling: Improved (The patient says her abdominal pain is improved. She denies any nausea and has not vomited. She denies any diarrhea or constipation. She denies any fever or chills.) Current Medications - Current Medications Current Medications: Active Medications Generic Name Dose Route Start Last Admin Trade Name Freq PRN Reason Stop Dose Admin Acetaminophen 650 mg 04/27/18 22:17 Tylenol PO Q4HR PRN Pain 1 to 4 Atorvastatin Calcium 10 mg 04/28/18 09:49 Lipitor PO QPM DAVID Enoxaparin Sodium 40 mg 04/28/18 09:00 04/28/18 09:37 Lovenox SUBQ 40 mg DAILY DAVID Administration Ciprofloxacin 200 mls @ 200 mls/hr 04/27/18 23:00 04/28/18 11:14 Cipro 400 Mg/200 Ml IV 200 mls/hr Q12H DAVID Administration Famotidine 50 mls @ 100 mls/hr 04/28/18 09:00 04/28/18 10:35 Pepcid 20 Mg/50 Ml IV Infused BID DAVID Infusion Sodium Chloride 1,000 mls @ 100 mls/hr 04/27/18 23:00 04/28/18 03:52 Normal Saline 0.9% IV 100 mls/hr .Q10H DAVID Administration Metronidazole 500 mg in 100 mls @ 100 mls/hr 04/28/18 09:00 04/28/18 09:50 Flagyl 500 Mg/100 Ml IV Infused Q8H DAVID Infusion Insulin Human Regular 1 - 5 unit 04/28/18 00:00 04/28/18 11:25 Novolin R SUBQ Not Given Q6HR DAVID Protocol Morphine Sulfate 2 mg 04/27/18 22:17 04/28/18 12:00 Morphine IVP 2 mg Q2H PRN Administration Pain 8 to 10 Ondansetron HCl 4 mg 04/27/18 22:17 04/28/18 08:50 Zofran Inj IVP 4 mg Q6HR PRN Administration Nausea / Vomiting Oxycodone HCl 5 mg 04/27/18 22:17 Roxicodone PO Q4HR PRN Pain 5 to 7 Oxycodone HCl 10 mg 04/27/18 22:17 04/28/18 04:00 Roxicodone PO 10 mg Q4HR PRN Administration Pain 8 to 10 Polyethylene Glycol 17 gm 04/28/18 09:00 04/28/18 09:11 Miralax PO Not Given DAILY [facility] Prochlorperazine Edisylate 10 mg 04/27/18 22:17 04/28/18 02:12 Compazine Inj IVP 10 mg Q6HR PRN Administration Nausea / Vomiting Promethazine HCl 25 mg 04/27/18 22:17 Phenergan Inj IM Q6HR PRN Nausea / Vomiting Sodium Chloride 10 ml 04/27/18 22:17 04/28/18 05:45 Normal Saline Flush 0.9% IVP 10 ml PRN PRN Administration NEEDED PER PROVIDER ORDERS Sodium Chloride 10 ml 04/28/18 01:00 04/28/18 10:24 Normal Saline Flush 0.9% IVP Not Given 0100,0900,1700 [facility] Zolpidem Tartrate 5 mg 04/27/18 22:17 04/27/18 23:54 Ambien PO 5 mg QPM PRN Administration Insomnia Citalopram [CeleXA] 10 mg PO DAILY 04/27/18 Albuterol Sulfate [Proair Respiclick] 2 puffs INH Q4H PRN 04/28/18 Atorvastatin Calcium 40 mg PO QPM 04/28/18 Fluticasone 110 Mcg [Flovent] 2 puffs INH BID 04/28/18 Metformin HCl [Glucophage] 1,000 mg PO BID 04/28/18 Omeprazole 40 mg PO QDAC 04/28/18 QUEtiapine [SEROquel] 200 mg PO QPM 04/28/18 Objective - Vital Signs/Intake & Output Reviewed Vital Signs: Yes Vital Signs: Vital Signs x48h Temp Pulse Resp BP Pulse Ox 04/28/18 08:00 36.3 C L 93 18 118/77 94 Intake & Output: Intake & Output 04/25/18 04/26/18 04/27/18 04/28/18 23:59 23:59 23:59 23:59 Intake Total 1550 Balance 1550 - Objective General Appearance: positive: No acute distress, Alert Eyes Bilateral: positive: Normal inspection, PERRL, EOMI, No lid inflammation, Conjunctivae nml, No scleral icterus ENT: positive: ENT inspection nml, Pharynx nml, No signs of dehydration Neck: positive: Nml inspection, Thyroid nml, No JVD, Trachea midline. negative : Thyromegaly Respiratory: positive: Chest non-tender, No respiratory distress, Breath sounds nml. negative: Wheezes, Rales, Rhonchi Cardiovascular: positive: Regular rate & rhythm, No murmur, No gallop Abdomen: positive: Non-tender, No organomegaly, Nml bowel sounds, No distention. negative: Guarding, Rebound Back: positive: Nml inspection. negative: CVA tenderness (R), CVA tenderness (L ) Skin: positive: Color nml, No rash, Warm, Dry. negative: Cyanosis Extremities: positive: Non-tender, Full ROM, Nml appearance, No pedal edema Neurologic/Psychiatric: positive: Oriented x3, CN's nml (2-12), Motor nml, Sensation nml, Mood/affect nml - Lab Results Fish Bones: 04/28/18 06:10 04/28/18 06:10 Other Labs: Lab Results x24hrs 04/28/18 04/28/18 04/28/18 Range/Units 06:10 06:10 06:10 WBC (4.8-10.8) x10^3/uL RBC (4.20-5.40) 10^6/uL Hgb (12.0-16.0) g/dL Hct (37.0-47.0) % MCV (81.0-99.0) fL MCH (27.0-31.0) pg MCHC (32.0-36.0) g/dL RDW (12.0-15.0) % Plt Count (130-450) 10^3/uL MPV (7.9-10.8) fL Neut # (Auto) (1.5-6.6) 10^3/uL Lymph # (Auto) (1.5-3.5) 10^3/uL Woodruff # (Auto) (0.0-1.0) 10^3/uL Eos # (Auto) (0.0-0.7) 10^3/uL Baso # (Auto) (0.0-0.1) 10^3/uL Absolute Nucleated RBC x10^3/uL Nucleated RBC % /100WBC PT (9.9-12.6) secs INR (0.8-1.2) Sodium 137 (135-145) mmol/L Potassium 4.0 (3.5-5.0) mmol/L Chloride 103 (101-111) mmol/L Carbon Dioxide 27 (21-32) mmol/L Anion Gap 7.0 (6-13) BUN 9 (6-20) mg/dL Creatinine 0.7 (0.4-1.0) mg/dL Estimated GFR (MDRD) 87 L (>89) Glucose 121 H (70-100) mg/dL Glycated Hemoglobin 7.0 H (4.6-6.2) % Estim Average Glucose 154 H (70-100) Lactic Acid 1.0 (0.5-2.2) mmol/L Calcium 8.0 L (8.5-10.3) mg/dL Phosphorus 4.2 (2.5-4.6) mg/dL Magnesium 1.8 (1.7-2.8) mg/dL Total Bilirubin 0.4 (0.2-1.0) mg/dL AST 31 (10-42) IU/L ALT 23 (10-60) IU/L Alkaline Phosphatase 57 (42-121) IU/L Total Protein 6.9 (6.7-8.2) g/dL Albumin 3.4 (3.2-5.5) g/dL Globulin 3.5 (2.1-4.2) g/dL Albumin/Globulin Ratio 1.0 (1.0-2.2) 04/28/18 04/28/18 Range/Units 06:10 06:10 WBC 9.4 (4.8-10.8) x10^3/uL RBC 4.43 (4.20-5.40) 10^6/uL Hgb 13.2 (12.0-16.0) g/dL Hct 40.6 (37.0-47.0) % MCV 91.5 (81.0-99.0) fL MCH 29.8 (27.0-31.0) pg MCHC 32.6 (32.0-36.0) g/dL RDW 13.6 (12.0-15.0) % Plt Count 216 (130-450) 10^3/uL MPV 9.0 (7.9-10.8) fL Neut # (Auto) 6.1 (1.5-6.6) 10^3/uL Lymph # (Auto) 2.4 (1.5-3.5) 10^3/uL Woodruff # (Auto) 0.7 (0.0-1.0) 10^3/uL Eos # (Auto) 0.2 (0.0-0.7) 10^3/uL Baso # (Auto) 0.1 (0.0-0.1) 10^3/uL Absolute Nucleated RBC 0.00 x10^3/uL Nucleated RBC % 0.0 /100WBC PT 11.1 (9.9-12.6) secs INR 1.0 (0.8-1.2) Sodium (135-145) mmol/L Potassium (3.5-5.0) mmol/L Chloride (101-111) mmol/L Carbon Dioxide (21-32) mmol/L Anion Gap (6-13) BUN (6-20) mg/dL Creatinine (0.4-1.0) mg/dL Estimated GFR (MDRD) (>89) Glucose (70-100) mg/dL Glycated Hemoglobin (4.6-6.2) % Estim Average Glucose (70-100) Lactic Acid (0.5-2.2) mmol/L Calcium (8.5-10.3) mg/dL Phosphorus (2.5-4.6) mg/dL Magnesium (1.7-2.8) mg/dL Total Bilirubin (0.2-1.0) mg/dL AST (10-42) IU/L ALT (10-60) IU/L Alkaline Phosphatase (42-121) IU/L Total Protein (6.7-8.2) g/dL Albumin (3.2-5.5) g/dL Globulin (2.1-4.2) g/dL Albumin/Globulin Ratio (1.0-2.2) - Diagnostic Imaging Diagnostic Imaging Results: positive: Final report reviewed Diagnostic Imaging Comments: EXAM: CT ABDOMEN AND PELVIS EXAM DATE: 04/27/2018 08:55 PM. CLINICAL HISTORY: Abdominal pain. COMPARISONS: CT abdomen/pelvis w/ 01/11/2018. TECHNIQUE: Routine helical CT imaging was performed through the abdomen and pelvis. IV contrast: 100 mL Isovue 300. Enteric contrast: No. Reconstructions: Coronal and sagittal. In accordance with CT protocol optimization, one or more of the following dose reduction techniques were utilized for this exam: automated exposure control, adjustment of mA and/or KV based on patient size, or use of iterative reconstructive technique. FINDINGS: Lung bases: No acute findings. Liver: Unremarkable. Gallbladder: Status post cholecystectomy. Bile ducts: Unremarkable. Pancreas: Unremarkable Spleen: Unremarkable. Adrenals: Unremarkable. Bowel: A couple of small left upper pole probable renal cysts. No hydronephrosis. Bowel: No evidence for bowel obstruction. Moderate sigmoid, mild descending and transverse diverticulosis. Small free fluid in the pelvis. Minimal perihepatic and perisplenic ascites. Moderate mesenteric fat edema is seen in the upper pelvis, new compared to the prior exam. Anterior pelvic ventral hernia repair with new anterior pelvic stranding superior to the mesh. Borderline dilated small bowel loop seen in the right side of the pelvis. Multiple fluid distended small bowel loops adjacent to this on the right side. Normal appendix. Pelvis: The bladder and remaining pelvic organs appear unremarkable. Status post hysterectomy. Vascular structures: No acute findings. No evidence for superior mesenteric artery or vein thrombosis. Bones: No acute bone findings. IMPRESSION: 1. New moderate mesenteric fat edema in the upper pelvis, uncertain etiology, can be seen with mesenteric panniculitis versus congestion versus fat strangulation. Single mildly dilated small bowel loop in the right side of the pelvis with fluid distended small bowel loops. Early obstruction is not excluded. Acute enteritis or ischemia is not excluded. 2. Normal appendix. Colonic diverticulosis. 3. See above. EXAM: CT ABDOMEN AND PELVIS EXAM DATE: 04/28/2018 02:37 AM. CLINICAL HISTORY: Abdominal pain possible obstruction. COMPARISONS: 04/27/2018. TECHNIQUE: Routine helical CT imaging was performed through the abdomen and pelvis. IV contrast: None. Enteric contrast: No. Reconstructions: Coronal and sagittal. In accordance with CT protocol optimization, one or more of the following dose reduction techniques were utilized for this exam: automated exposure control, adjustment of mA and/or KV based on patient size, or use of iterative reconstructive technique. FINDINGS: Lung Bases: Minimal bibasilar atelectasis. Coronary artery calcifications. Mitral annulus calcification. Liver: No focal abnormality seen on this noncontrast examination. Gallbladder/Bile Ducts: Unremarkable. Spleen: Normal. Pancreas: Normal. Adrenal Glands: Normal. Kidneys: Small left renal cysts. No masses or hydronephrosis. Peritoneal Cavity/Bowel: No bowel obstruction seen. Colonic diverticula. No obvious diverticulitis. There are some possible thickened small bowel loops with mesenteric edema. Findings could represent enteritis. Trace amount of ascites. No free air. No lymphadenopathy. Appendix appears normal. Pelvic Organs: Uterus is not seen. Visualized pelvic organs are otherwise unremarkable. Excreted contrast in the urinary tract. Vasculature: Mild atherosclerosis. No aortic aneurysm. Bones: Degenerative changes at L5-S1. Other: Ventral hernia repair. IMPRESSION: 1. No bowel obstruction seen. 2. Possible mild wall thickening in some of the small bowel loops. There is associated mesenteric edema. Enteritis could have this appearance. 3. Colonic diverticula are seen. No diverticulitis identified. No appendicitis. 4. Trace amount of ascites. EXAM: Abdomen Acute DATE: 04/28/2018 8:17 AM CLINICAL HISTORY: POSSIBLE SBO, ABDOMINAL PAIN COMPARISON: CT 04/28/2018 TECHNIQUE: 2 views abdomen and 1 view chest. FINDINGS: CHEST: Lungs/Pleura: Minimal atelectasis. No effusion or pneumothorax. Mediastinum: Within exam limitations, cardiomediastinal contour is normal. ABDOMEN: Bowel Gas Pattern: Within normal limits. No dilated loops or abnormal fluid levels. Free Air: None. Other: Oral contrast now seen throughout the colon, excluding obstruction. IMPRESSION: Minimal left lung atelectasis. No evidence of bowel obstruction or perforation. ABX Reporting Has patient been on IV antibiotics over the past 48 hours?: No Assessment/Plan - Problem List (1) Abdominal pain Impression: The patient's pain is improved, and she has not had any nausea or vomiting today. I discussed the case at length with Dr. Garnett, the general surgeon on the case, and he feels that the patient is no longer surgical candidate and that we should start to feed her. I will start her therefore on a clear liquid diet and we will monitor her as she eats, advancing her diet as tolerated. Qualifiers: Abdominal location: generalized Qualified Code(s): R10.84 - Generalized abdominal pain (2) COPD (chronic obstructive pulmonary disease) Impression: No evidence of acute exacerbation at this time. We will continue the patient on albuterol and fluticasone. (3) Anxiety and depression Impression: Patient denies any significant issues with anxiety or depression at this time. We will continue on her home dosing of Celexa and Seroquel. (4) Insomnia Impression: We will continue the patient on her home dosing of Seroquel at bedtime. (5) GERD (gastroesophageal reflux disease) Impression: We will continue the patient on her home dosing of omeprazole Qualifiers: Esophagitis presence: without esophagitis Qualified Code(s): K21.9 - Gastro -esophageal reflux disease without esophagitis (6) Hyperlipidemia Impression: We will continue the patient on her home dosing of atorvastatin. Qualifiers: Hyperlipidemia type: unspecified Qualified Code(s): E78.5 - Hyperlipidemia , unspecified (7) Diabetes Impression: We will continue the patient on her home dosing of Metformin. There may be some diabetic gastroparesis component and we will give the patient low dose Reglan. Qualifiers: Diabetes mellitus type: type 2 Diabetes mellitus intermodal customer service insulin use: without intermodal customer service use Diabetes mellitus complication status: without complication Qualified Code(s): E11.9 - Type 2 diabetes mellitus without complications
[2018-04-28] MEDS ORDERED: METOCLOPRAMIDE 10 MG/2 ML VIAL IVP PRN (12:39)
[2018-04-28] MEDS: SENNA 8.6 MG TABLET PO SCH (17:24)
[2018-04-28] MEDS: DOCUSATE SODIUM 250 MG CAPSULE PO SCH (17:24)
[2018-04-28] MEDS: INSULIN ASPART 300 UNIT/3 ML PEN SUBQ SCH ×2 (17:32→21:00)
--- NOTE | 2018-04-28 23:51 | PROVIDER PROGRESS NOTE ---
Subjective - General Admit Date: 04/28/18 - Review of Systems Gastrointestinal: positive: Other (abdominal pain less today) Objective - Patient Data Intake & Output: Intake and Output Totals x24h 04/26/18 04/27/18 04/28/18 23:59 23:59 23:59 Intake Total 270 Balance 270 - Lab Results Lab Results: 04/28/18 06:10 04/28/18 06:10 - Current Medications Current Medications: Current Medications Generic Name Dose Route Start Last Admin Trade Name Freq PRN Reason Stop Dose Admin Acetaminophen 650 mg 04/27/18 22:17 04/28/18 20:58 Tylenol PO 650 mg Q4HR PRN Administration Pain 1 to 4 Atorvastatin Calcium 10 mg 04/28/18 09:49 04/28/18 20:51 Lipitor PO 10 mg QPM DAVID Administration Docusate Sodium 250 - 500 mg 04/28/18 17:00 04/28/18 17:24 Colace 250mg Capsule PO 250 mg DAILY DAVID Administration Enoxaparin Sodium 40 mg 04/28/18 09:00 04/28/18 09:37 Lovenox SUBQ 40 mg DAILY DAVID Administration Ciprofloxacin 200 mls @ 200 mls/hr 04/27/18 23:00 04/28/18 22:36 Cipro 400 Mg/200 Ml IV 200 mls/hr Q12H DAVID Administration Famotidine 50 mls @ 100 mls/hr 04/28/18 09:00 04/28/18 21:25 Pepcid 20 Mg/50 Ml IV Infused BID DAVID Infusion Sodium Chloride 1,000 mls @ 100 mls/hr 04/27/18 23:00 04/28/18 15:40 Normal Saline 0.9% IV 100 mls/hr .Q10H DAVID Administration Metronidazole 500 mg in 100 mls @ 100 mls/hr 04/28/18 09:00 04/28/18 18:58 Flagyl 500 Mg/100 Ml IV Infused Q8H DAVID Infusion Insulin Aspart 1 - 5 unit 04/28/18 17:00 04/28/18 21:00 Novolog SUBQ Not Given 0800,1200,1700,2100 [facility] Protocol Morphine Sulfate 2 mg 04/27/18 22:17 04/28/18 19:03 Morphine IVP 2 mg Q2H PRN Administration Pain 8 to 10 Ondansetron HCl 4 mg 04/27/18 22:17 04/28/18 17:24 Zofran Inj IVP 4 mg Q6HR PRN Administration Nausea / Vomiting Oxycodone HCl 5 mg 04/27/18 22:17 04/28/18 20:59 Roxicodone PO 5 mg Q4HR PRN Administration Pain 5 to 7 Oxycodone HCl 10 mg 04/27/18 22:17 04/28/18 17:29 Roxicodone PO 10 mg Q4HR PRN Administration Pain 8 to 10 Polyethylene Glycol 17 gm 04/28/18 09:00 04/28/18 09:11 Miralax PO Not Given DAILY [facility]ID Prochlorperazine Edisylate 10 mg 04/27/18 22:17 04/28/18 02:12 Compazine Inj IVP 10 mg Q6HR PRN Administration Nausea / Vomiting Senna 8.6 - 17.2 mg 04/28/18 17:00 04/28/18 17:24 Senokot PO 8.6 mg DAILY DAVID Administration Sodium Chloride 10 ml 04/27/18 22:17 04/28/18 05:45 Normal Saline Flush 0.9% IVP 10 ml PRN PRN Administration NEEDED PER PROVIDER ORDERS Sodium Chloride 10 ml 04/28/18 01:00 04/28/18 17:08 Normal Saline Flush 0.9% IVP Not Given 0100,0900,1700 [facility] Zolpidem Tartrate 5 mg 04/27/18 22:17 04/27/18 23:54 Ambien PO 5 mg QPM PRN Administration Insomnia - Physical Exam Abdomen: positive: Other (mild tenderness in the right side of abdomen) Impression/Plan - Problem List Problem List: abdominal pain unknown cause. CT scan of abdomen shows possible enteritis as a cause of her discomfort. AAS this am shows contrast in the colon. Start liquids and advance diet as tolerated. Recommend f/u with her hernia surgeon after discharge.
[2018-04-29] MEDS: ZOLPIDEM 5 MG TABLET PO PRN (00:15)
[2018-04-29] MEDS: MORPHINE 2 MG/ML SYRINGE IVP PRN ×2 (00:15→00:38)
[2018-04-29] MEDS: metroNIDAZOLE 500 MG/100 ML 500 MG/100 ML BAG IV SCH ×2 (00:15→09:37)
[2018-04-29] MEDS: SODIUM CHLORIDE 0.9% 1,000 ML IV SCH ×2 (00:39→06:21)
[2018-04-29] MEDS: SODIUM CHLORIDE FLUSH 0.9% 10 ML SYRINGE IVP SCH ×2 (00:39→09:38)
[2018-04-29] MEDS: oxyCODONE 5 MG TABLET PO PRN ×3 (02:20→10:47)
[2018-04-29 06:18] LABS: BASOPHILS % (AUTO) 0.5 %; EOSINOPHILS # (AUTO) 0.1 10^3/uL (0.0-0.7); EOSINOPHILS % (AUTO) 1.9 %; HGB - HEMOGLOBIN 12.6 g/dL (12.0-16.0); LYMPHOCYTES # (AUTO) 2.2 10^3/uL (1.5-3.5); LYMPHOCYTES % (AUTO) 29.7 %; MEAN CORPUSCULAR HEMOGLOBIN 29.6 pg (27.0-31.0); MEAN CORPUSCULAR HGB CONC 32.4 g/dL (32.0-36.0); MEAN CORPUSCULAR VOLUME 91.2 fL (81.0-99.0); MEAN PLATELET VOLUME 9.4 fL (7.9-10.8); MONOCYTES # (AUTO) 0.5 10^3/uL (0.0-1.0); MONOCYTES % (AUTO) 7.5 %; NEUTROPHILS # (AUTO) 4.4 10^3/uL (1.5-6.6); NEUTROPHILS % (AUTO) 60.4 %; PLT - PLATELET COUNT 191 10^3/uL (130-450); RED BLOOD COUNT 4.26 10^6/uL (4.20-5.40); WHITE BLOOD COUNT 7.3 x10^3/uL (4.8-10.8)
[2018-04-29 06:20] LABS: ALBUMIN 3.7 g/dL (3.2-5.5); ALBUMIN/GLOBULIN RATIO 1.2 (1.0-2.2); BILIRUBIN,TOTAL 0.5 mg/dL (0.2-1.0); CALCIUM 8.4 mg/dL (8.5-10.3); CREATININE 0.6 mg/dL (0.4-1.0); PHOSPHORUS 3.4 mg/dL (2.5-4.6); TOTAL PROTEIN 6.9 g/dL (6.7-8.2)
[2018-04-29 07:45] VITALS: BP 142/68
[2018-04-29] MEDS: INSULIN ASPART 300 UNIT/3 ML PEN SUBQ SCH ×2 (08:05→11:42)
[2018-04-29] MEDS: DOCUSATE SODIUM 250 MG CAPSULE PO SCH (08:06)
[2018-04-29] MEDS: SENNA 8.6 MG TABLET PO SCH (08:07)
[2018-04-29] MEDS: POLYETHYLENE GLYCOL 3350 17 GM PACKET PO SCH (08:07)
[2018-04-29] MEDS: ENOXAPARIN 40 MG/0.4 ML SYRINGE SUBQ SCH ×2 (08:08→11:40)
[2018-04-29] MEDS: FAMOTIDINE 20 MG/50 ML 50 ML IV SCH (08:08)
[2018-04-29] MEDS: ONDANSETRON 4 MG/2 ML VIAL IVP PRN (09:37)
[2018-04-29] MEDS: CIPROFLOXACIN 400 MG/200 ML 200 ML IV SCH (10:47)
--- NOTE | 2018-04-29 14:00 | Discharge Plan ---
Discharge Plan Disposition: 01 Home, Self Care Condition: Stable Diet: Diabetic Activity Restrictions: Activity as Tolerated Shower Restrictions: No Driving Restrictions: No Weight Bearing: Full Weight No Smoking: If you smoke, Please STOP! Call for help. Follow-up with: Loc Trevino PA-C [Primary Care Provider] -
--- NOTE | 2018-04-29 14:02 | DISCHARGE SUMMARY ---
Discharge Summary Admit Date: 04/27/18 Discharge Date: 04/29/18 Discharging Provider: Brittanie Gates DO Primary Care Provider: Sunita Ramos Code Status: Attempt Resuscitation Condition at Discharge: Stable Discharge Disposition: 01 Home, Self Care - DIAGNOSES Admission Diagnoses: 1. Abdominal pain 2. Diabetes 3. Anxiety and depression 4. Gastroesophageal reflux disease 5. Hyperlipidemia Discharge Diagnoses with Status of Each Condition: 1. Abdominal pain- Although now completely resolved, it is much improved. The patient has been eating a regular diet and has moved her bowels 3 times today. Of note is that the patient states that she had been on the ketogenic diet and may have caused herself problems when she had a piece of corn on the cob. 2. Diabetes - Well-managed, hemoglobin A1c was checked during this hospitalization and was 7.0. Continue home care. 3. Anxiety and depression- Well-managed, patient denies any anxiety or depression at this time. Continue home medication regimen (celexa and seroquel) . 4. Gastroesophageal reflux disease - We will continue the patient on her home dosing of omeprazole. 5. Hyperlipidemia- Presumably well-managed, continue Lipitor. - HPI History of Present Illness: Patient is a 53-year-old female with a past medical history significant for diabetes mellitus type II, coronary artery disease with a non-ST elevation OR in 2013 for clean coronary artery angiogram, depression, anxiety, GERD, osteoarthritis, history of diverticulitis, chronic back pain and multiple hernia repairs and multiple bowel obstructions with multiple abdominal surgeries who presents to the emergency department with a chief complaint of abdominal pain. The patient states that she was in her normal state of health until early this morning when she began having sharp pains in her abdomen. She states that the pain was coming in waves. She states that the pain initially started just lateral to her umbilicus on the right side and radiated up to the right upper quadrant and then down to the right lower quadrant. She states that the pain was moving down into the groin area. She states at its worst the pain was a 10 out of 10 and was gradually worsening throughout the day and becoming more and more frequent. She states that she has had pain like this before but it usually resolves on its own at home and does not get this severe. She states that she continued to feel nauseated all day but could not vomit. She states that she had several very small bowel movements that were runny stools but feels as though her abdomen is distended and she is constipated. She states that she also had chills but no fever. The patient denies any dysuria, hematuria or any increased urinary frequency. The patient denies any chest pain. The patient denies any lower extremity swelling. Patient denies any headaches, blurred vision, runny nose, sore throat, nasal congestion, difficulty swallowing, chest pain, shortness of breath, orthopnea, PND, increased lower extremity swelling, joint pain, joint swelling, muscle aches, back pain, neck stiffness, recent unintentional weight loss, changes in her appetite, skin changes, hair loss, polydipsia, polyuria, night sweats or any focal neurologic deficits. On presentation to the emergency department the patient was afebrile, her heart rate was in the high 90s and she was hypertensive but not in any respiratory distress. The patient did appear to be in pain in the emergency department and was given a dose of IV morphine. The patient states that her pain did become significantly better after getting the morphine but then started up again a few hours later. The patient was also nauseated and given Zofran as well as IV fluids. The patient's lab work did reveal a mild leukocytosis of 12,000. The patient's electrolytes were all within normal limits. The patient's urine analysis showed 6-10 WBCs with few bacteria but a negative leukocyte esterase and nitrite. The patient underwent a CT of her abdomen and pelvis which revealed new moderate mesenteric fat edema in the upper pelvis, uncertain etiology, can be seen with mesenteric panniculitis versus congestion versus fat strangulation. A single mildly dilated small bowel loop was seen in the right side of the pelvis with fluid distended small bowel loops. Early obstruction is not excluded. Acute enteritis or ischemia was also not excluded. Given these findings on CT scan the emergency room physician spoke with the surgeon information systems specialist Dr. Garnett. He asked that the patient be admitted by the hospitalist service and be treated medically for possible bowel obstruction. He asked for a repeat CT with oral contrast and said that he would follow the patient in consultation. - HOSPITAL COURSE Hospital Course: Patient was admitted to medical surgical bed and was seen by the hospitalist team as well as general surgery. After examining the patient was felt that the patient was no longer surgical candidate and we began refeeding her with clear liquid diet for 24 hours. She tolerated that fairly well and is now on a regular diet which she is also tolerating well. - ALLERGIES Allergies/Adverse Reactions: Allergies Allergy/AdvReac Type Severity Reaction Status Date / Time hydromorphone HCl * Allergy Unknown Verified 06/13/16 11:28 [From Dilaudid] - MEDICATIONS Home Medications: Ambulatory Orders Medication Instructions Recorded Confirmed Citalopram [CeleXA] 10 mg PO DAILY 04/27/18 04/28/18 Albuterol Sulfate [Proair 2 puffs INH Q4H PRN 04/28/18 04/28/18 Respiclick] Atorvastatin Calcium 40 mg PO QPM 04/28/18 04/28/18 Fluticasone 110 Mcg [Flovent] 2 puffs INH BID 04/28/18 04/28/18 Metformin HCl [Glucophage] 1,000 mg PO BID 04/28/18 04/28/18 Omeprazole 40 mg PO QDAC 04/28/18 04/28/18 QUEtiapine [SEROquel] 200 mg PO QPM 04/28/18 04/28/18 Atorvastatin [Lipitor] 10 mg PO QPM tablet 04/29/18 - PHYSICAL EXAM AT DISCHARGE General Appearance: positive: No acute distress, Alert Eyes Bilateral: positive: Normal inspection, PERRL, EOMI, No lid inflammation, Conjunctivae nml, No scleral icterus ENT: positive: ENT inspection nml, Pharynx nml, No signs of dehydration Neck: positive: Nml inspection, Thyroid nml, No JVD, Trachea midline. negative : Thyromegaly Respiratory: positive: Chest non-tender, No respiratory distress, Breath sounds nml. negative: Wheezes, Rales, Rhonchi Cardiovascular: positive: Regular rate & rhythm, No murmur, No gallop Peripheral Pulses: positive: 1+ Abdomen: positive: No organomegaly, Nml bowel sounds, No distention, Tenderness. negative: Guarding, Rebound Back: positive: Nml inspection. negative: CVA tenderness (R), CVA tenderness (L ) Skin: positive: Color nml, No rash, Warm, Dry. negative: Cyanosis Extremities: positive: Non-tender, Full ROM, Nml appearance, No pedal edema Neurologic/Psychiatric: positive: Oriented x3, CN's nml (2-12), Motor nml, Sensation nml, Mood/affect nml - LABS Result Diagrams: 04/29/18 05:10 04/29/18 05:10 - DIAGNOSTIC IMAGING Diagnostic Imaging Results: Final report reviewed Diagnostic Imaging Results Comments: EXAM: CT ABDOMEN AND PELVIS EXAM DATE: 04/27/2018 08:55 PM. CLINICAL HISTORY: Abdominal pain. COMPARISONS: CT abdomen/pelvis 01/11/2018. TECHNIQUE: Routine helical CT imaging was performed through the abdomen and pelvis. IV contrast: 100 mL Isovue 300. Enteric contrast: No. Reconstructions: Coronal and sagittal. In accordance with CT protocol optimization, one or more of the following dose reduction techniques were utilized for this exam: automated exposure control, adjustment of mA and/or KV based on patient size, or use of iterative reconstructive technique. FINDINGS: Lung bases: No acute findings. Liver: Unremarkable. Gallbladder: Status post cholecystectomy. Bile ducts: Unremarkable. Pancreas: Unremarkable Spleen: Unremarkable. Adrenals: Unremarkable. Bowel: A couple of small left upper pole probable renal cysts. No hydronephrosis. Bowel: No evidence for bowel obstruction. Moderate sigmoid, mild descending and transverse diverticulosis. Small free fluid in the pelvis. Minimal perihepatic and perisplenic ascites. Moderate mesenteric fat edema is seen in the upper pelvis, new compared to the prior exam. Anterior pelvic ventral hernia repair with new anterior pelvic stranding superior to the mesh. Borderline dilated small bowel loop seen in the right side of the pelvis. Multiple fluid distended small bowel loops adjacent to this on the right side. Normal appendix. Pelvis: The bladder and remaining pelvic organs appear unremarkable. Status post hysterectomy. Vascular structures: No acute findings. No evidence for superior mesenteric artery or vein thrombosis. Bones: No acute bone findings. IMPRESSION: 1. New moderate mesenteric fat edema in the upper pelvis, uncertain etiology, can be seen with mesenteric panniculitis versus congestion versus fat strangulation. Single mildly dilated small bowel loop in the right side of the pelvis with fluid distended small bowel loops. Early obstruction is not excluded. Acute enteritis or ischemia is not excluded. 2. Normal appendix. Colonic diverticulosis. 3. See above. EXAM: CT ABDOMEN AND PELVIS EXAM DATE: 04/28/2018 02:37 AM. CLINICAL HISTORY: Abdominal pain possible obstruction. COMPARISONS: 04/27/2018. TECHNIQUE: Routine helical CT imaging was performed through the abdomen and pelvis. IV contrast: None. Enteric contrast: No. Reconstructions: Coronal and sagittal. In accordance with CT protocol optimization, one or more of the following dose reduction techniques were utilized for this exam: automated exposure control, adjustment of mA and/or KV based on patient size, or use of iterative reconstructive technique. FINDINGS: Lung Bases: Minimal bibasilar atelectasis. Coronary artery calcifications. Mitral annulus calcification. Liver: No focal abnormality seen on this noncontrast examination. Gallbladder/Bile Ducts: Unremarkable. Spleen: Normal. Pancreas: Normal. Adrenal Glands: Normal. Kidneys: Small left renal cysts. No masses or hydronephrosis. Peritoneal Cavity/Bowel: No bowel obstruction seen. Colonic diverticula. No obvious diverticulitis. There are some possible thickened small bowel loops with mesenteric edema. Findings could represent enteritis. Trace amount of ascites. No free air. No lymphadenopathy. Appendix appears normal. Pelvic Organs: Uterus is not seen. Visualized pelvic organs are otherwise unremarkable. Excreted contrast in the urinary tract. Vasculature: Mild atherosclerosis. No aortic aneurysm. Bones: Degenerative changes at L5-S1. Other: Ventral hernia repair. IMPRESSION: 1. No bowel obstruction seen. 2. Possible mild wall thickening in some of the small bowel loops. There is associated mesenteric edema. Enteritis could have this appearance. 3. Colonic diverticula are seen. No diverticulitis identified. No appendicitis. 4. Trace amount of ascites. EXAM: Abdomen Acute DATE: 04/28/2018 8:17 AM CLINICAL HISTORY: POSSIBLE SBO, ABDOMINAL PAIN COMPARISON: CT 04/28/2018 TECHNIQUE: 2 views abdomen and 1 view chest. FINDINGS: CHEST: Lungs/Pleura: Minimal atelectasis. No effusion or pneumothorax. Mediastinum: Within exam limitations, cardiomediastinal contour is normal. ABDOMEN: Bowel Gas Pattern: Within normal limits. No dilated loops or abnormal fluid levels. Free Air: None. Other: Oral contrast now seen throughout the colon, excluding obstruction. IMPRESSION: Minimal left lung atelectasis. No evidence of bowel obstruction or perforation. - FOLLOW UP Follow Up: With Sunita Ramos in 1 week - TIME SPENT Time Spent in Discharge (Minutes): 45
== END 2018-04-29 14:45 | disposition home or self-care (01) | DRG 392 ==
LOC: EDUNIT# → ED 18:47 → MS2 22:18 → OBSVTOIN 04-28 18:40
PROVIDERS: ADMIT Internal Medicine; ATTEND Hospitalist
DX: R10.84 Generalized abdominal pain (principal); R10.817 Generalized abdominal tenderness; E11.9 Type 2 diabetes mellitus without complications; F32.9 Major depressive disorder, single episode, unspecified; F41.9 Anxiety disorder, unspecified; K21.9 Gastro-esophageal reflux disease without esophagitis; E78.5 Hyperlipidemia, unspecified; J44.9 Chronic obstructive pulmonary disease, unspecified; G47.00 Insomnia, unspecified; I25.10 Atherosclerotic heart disease of native coronary artery without angina pectoris; I25.2 Old myocardial infarction; Z87.19 Personal history of other diseases of the digestive system; Z98.890 Other specified postprocedural states; Z79.84 Long term (current) use of oral hypoglycemic drugs; Z79.899 Other long term (current) drug therapy; Z90.49 Acquired absence of other specified parts of digestive tract; Z87.891 Personal history of nicotine dependence
CPT/HCPCS: 36415; 74022; 74176; 74177; 80048; 80053; 81001; 81003; 83036; 83605; 83690; 83735; 84100; 85025; 85027; 85610; 87086; 96361; 96365; 96366; 96367; 96372; 96375; 96376; 99283; 99284

== ENCOUNTER 2018-07-21 08:00 | Outpatient (CLI) | payer MEDICAID ==
[2018-07-21 14:25] LABS: HB2 TOTAL 14.8 g/dL; HEMOGLOBIN A1C 0.82 g/dL; HEMOGLOBIN A1C % 7.2 % (4.6-6.2)
== END 2018-07-21 08:01 | disposition home or self-care (01) ==
LOC: LAB.N 08:00
PROVIDERS: ATTEND Physician Assistant Medical
DX: E11.9 Type 2 diabetes mellitus without complications (principal)
CPT/HCPCS: 36415; 83036

== ENCOUNTER 2019-01-04 08:00 | Outpatient (CLI) | payer BC, MEDICAID ==
[2019-01-04 19:45] LABS: HB2 TOTAL 14.6 g/dL; HEMOGLOBIN A1C 0.89 g/dL; HEMOGLOBIN A1C % 7.7 % (4.6-6.2)
== END 2019-01-04 23:59 | disposition home or self-care (01) ==
LOC: LAB.N 08:00
PROVIDERS: ATTEND Physician Assistant Medical
DX: E11.9 Type 2 diabetes mellitus without complications (principal)
CPT/HCPCS: 36415; 83036

== ENCOUNTER 2019-01-11 09:32 | Outpatient (CLI) | payer BC ==
--- NOTE | 2019-01-11 13:23 | XRAY Report ---
Reason: KNEE JOINT PAIN,RIGHT Procedure Date: 01/11/2019 Accession Number: [id number] / [id number] Procedure: XRN - Knee 3 View RT CPT Code: FULL RESULT: EXAM: RIGHT KNEE RADIOGRAPHY EXAM DATE: 01/11/2019 09:52 AM. CLINICAL HISTORY: Knee joint pain, right. COMPARISON: None. TECHNIQUE: 3 views. FINDINGS: Bones: Normal. No fractures or bone lesions. Joints: Small suprapatellar effusion. No dislocation or subluxation. Soft Tissues: Normal. No soft tissue swelling. IMPRESSION: Small suprapatellar effusion. No appreciable fracture or malalignment. RADIA
== END 2019-01-11 09:33 | disposition home or self-care (01) ==
LOC: DI.N 09:32
PROVIDERS: ATTEND Physician Assistant Medical
DX: M25.561 Pain in right knee (principal); M25.461 Effusion, right knee

== ENCOUNTER 2020-11-12 12:43 | Emergency (ER) | payer OTHER ==
[2020-11-12] MEDS ORDERED: BUFFERED LIDOCAINE 10 ML SYRINGE SUBQ STA (14:29)
[2020-11-12] MEDS ORDERED: TETANUS/DIPHTHERIA/PERTUSSIS 0.5 ML SYRINGE IM ONE (14:45)
--- NOTE | 2020-11-12 14:46 | ED Physician Documentation ---
History of Present Illness - Stated complaint Stated Complaint: R HAND LAC - Chief complaint Chief Complaint: Laceration - Additonal information Additional information: 55-year-old female presents to the emergency department for evaluation of a laceration to the right hand. 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 She reports that she has numbness of the MCP and radial side of the middle finger. Flexion extension against resistance is preserved in all planes of the finger. Unknown last tetanus Review of Systems Constitutional: reports: Reviewed and negative Eyes: reports: Reviewed and negative Ears: reports: Reviewed and negative Nose: reports: Reviewed and negative Throat: reports: Reviewed and negative Cardiac: reports: Reviewed and negative Respiratory: reports: Reviewed and negative GI: reports: Reviewed and negative : reports: Reviewed and negative Skin: reports: Laceration (s) (palm between middle and index finger near webbing) Musculoskeletal: reports: Reviewed and negative Neurologic: reports: Reviewed and negative PD PAST MEDICAL HISTORY - Past Medical History Cardiovascular: Coronary artery disease, Other Respiratory: Asthma Endocrine/Autoimmune: Type 2 diabetes GI: GERD, Hiatal hernia, Other : None HEENT: None Psych: None Musculoskeletal: Osteoarthritis, Chronic back pain Derm: None - Past Surgical History Past Surgical History: Yes General: Cholecystectomy, Hiatal hernia repair Ortho: Carpal Tunnel surgery /[employer]ER: section, Hysterectomy Cardiovascular: Cardiac catheterization - Present Medications Home Medications: Ambulatory Orders Medication Instructions Recorded Confirmed Citalopram [CeleXA] 10 mg PO DAILY 04/27/18 04/28/18 Albuterol Sulfate [Proair 2 puffs INH Q4H PRN 04/28/18 04/28/18 Respiclick] Atorvastatin Calcium 40 mg PO QPM 04/28/18 04/28/18 Fluticasone 110 Mcg [Flovent] 2 puffs INH BID 04/28/18 04/28/18 Metformin HCl [Glucophage] 1,000 mg PO BID 04/28/18 04/28/18 Omeprazole 40 mg PO QDAC 04/28/18 04/28/18 QUEtiapine [SEROquel] 200 mg PO QPM 04/28/18 04/28/18 Atorvastatin [Lipitor] 10 mg PO QPM tablet 04/29/18 - Allergies Allergies/Adverse Reactions: Allergies Allergy/AdvReac Type Severity Reaction Status Date / Time No Known Drug Allergies Allergy Verified 11/12/20 12:51 - Social History Does the pt smoke?: No Smoking Status: Never smoker Does the pt drink ETOH?: Yes Does the pt have substance abuse?: No - Immunizations Immunizations are current?: Yes - POLST Patient has POLST: No POLST Status: Full Code PD ED PE EXPANDED - Extremities Extremities: Right hand (Stab injury/laceration palmar side right hand near webbing between index finger and middle finger. Normal flexion and extension of digits in all planes. Medial or radial side of index finger is numb distally to the laceration.) Results - Vitals Vitals: Vital Signs - 24 hr 11/12/20 12:51 Temperature 36 C L Heart Rate 88 Respiratory 16 Rate Blood Pressure 120/74 O2 Saturation 97 Oxygen O2 Source Room air - Rads (name of study) hand xr Radiology: Final report received (no fx) Procedures - Laceration (location) right hand Length in cm: 1.5 Wound type: Linear Neurovascular status: Motor intact, Vascular intact. No: Sensory intact Tendon involvement: Tendon intact Anesthesia: Lidocaine 1% Wound Preparation: Chlorhexadine, Irrigated copiously NS Skin layer closure: Nylon, Size #-0 - enter number (4), Sutures - enter # (2) Other: Patient tolerated well, No complications, Tetanus booster given. No: Neurovascular intact Complexity: Simple (Radial side of middle finger is numb from the point of the laceration forward.) PD MEDICAL DECISION MAKING - ED course Complexity details: reviewed results, re-evaluated patient, considered differential ED course: 55-year-old female presents the emergency department for evaluation of a right hand laceration on the palm just near the webbing between the index and middle finger. X-ray shows no fracture. The radial side of the middle finger is numb distal to the laceration. Given the location of the wound I suspect that she has severed the nerve. However her function is preserved. Wound was easily closed with 2 sutures. Routine wound care and emergent return precautions discussed. This did occur at work and the appropriate L&I paperwork was completed. Departure - Departure Disposition: 01 Home, Self Care Clinical Impression: Hand laceration Qualifiers: Encounter type: initial encounter Foreign body presence: without foreign body Laterality: right Qualified Code(s): S61.411A - Laceration without foreign body of right hand, initial encounter Condition: Stable Record reviewed to determine appropriate education?: Yes Instructions: ED Laceration Hand Follow-Up: [facility] [Provider Group] Comments: Your suture should be removed in 7 to 10 days. In 24 hours you may remove the dressing wash gently with warm soap and water, apply any antibiotic ointment and a simple bandage. Your tetanus is up-to-date. Please attempt to keep your wound clean and dry. Do not submerge it in dirty dishwater or bath water. Return to the emergency department if you have any concerns of infection such as redness, fevers milky drainage increased pain. When at work, please wear gloves at all times until laceration healed fully You do have numbness on the middle finger. You may have lacerated the nerve distal tot eh laceration. Please follow up with [facility] primary doctor for a referral to hand physical therapy that should be covered by L&I
--- NOTE | 2020-11-12 15:07 | XRAY Report ---
PROCEDURE: Hand 3 View RT INDICATIONS: laceration; r/o fx TECHNIQUE: 3 views of the hand(s) acquired. COMPARISON: None. FINDINGS: Bones: No fractures or dislocations. No suspicious bony lesions. Soft tissues: No suspicious soft tissue calcifications. No radiopaque soft tissue foreign bodies vi sualized. IMPRESSION: Right hand without acute fracture or dislocation. No radiopaque soft tissue foreign bodies. Reviewed by: Yosi Richardson MD on 11/12/2020 2:05 PM [facility] Approved by: Yosi Richardson MD on 11/12/2020 2:05 PM [facility] Station ID: [id number]
[2020-11-12 15:12] VITALS: BP 119/58
== END 2020-11-12 15:13 | disposition home or self-care (01) ==
LOC: ED 12:43
DX: S61.411A Laceration without foreign body of right hand, initial encounter (principal); W27.2XXA Contact with scissors, initial encounter; Y93.89 Activity, other specified; Y99.0 Civilian activity done for income or pay; R20.0 Anesthesia of skin; Z23 Encounter for immunization; E11.9 Type 2 diabetes mellitus without complications; Z79.84 Long term (current) use of oral hypoglycemic drugs
CPT/HCPCS: 1040M; 12001; 73130; 90471; 90715; 99281; 99283

== ENCOUNTER 2021-06-16 13:56 | Outpatient (CLI) | payer SELFPAY | END 2021-06-16 13:57 | disposition EMS.NT | LOC: EMS 13:56 | DX: R23.2 Flushing (principal); R11.0 Nausea ==

== ENCOUNTER 2021-08-06 15:00 | Outpatient (CLI) | payer OTHER | END 2021-08-06 15:01 | disposition critical access hospital (66) | LOC: EMS 15:00 | DX: F41.9 Anxiety disorder, unspecified (principal); R11.0 Nausea | CPT/HCPCS: A0425; A0427 ==

== ENCOUNTER 2021-08-06 18:14 | Emergency (ER) | payer OTHER ==
[2021-08-06] MEDS ORDERED: SODIUM CHLORIDE 0.9% 1,000 ML IV STA (18:28)
[2021-08-06] MEDS ORDERED: ONDANSETRON 4 MG/2 ML VIAL IVP STA (18:28)
[2021-08-06] MEDS ORDERED: BUPRENORPHINE 0.3 MG/ML VIAL IVP STA (18:29)
--- NOTE | 2021-08-06 18:47 | ED Physician Documentation ---
History of Present Illness - Stated complaint Stated Complaint: ANXIETY - Chief complaint Chief Complaint: General - History obtained from History obtained from: Patient - History of Present Illness Timing: Today Pain level max: 0 Pain level now: 0 - Additonal information Additional information: 56-year-old female who states that she has been buying 30 mg oxycodone pills off the street for the past 6 months and has been taking between 4 and 6/day. She states that she top taking them today and now feels like she is going through withdrawals. She states she feels like she is "crawling out of her skin". Has had nausea but no vomiting. No diarrhea or constipation. She took part of a friend's Suboxone earlier today. Denies any other drug use. Nothing makes it better or worse. No fevers or chills. No injuries. Review of Systems Ten Systems: 10 systems reviewed and negative Constitutional: denies: Fever, Chills Nose: denies: Rhinorrhea / runny nose, Congestion Cardiac: denies: Chest pain / pressure, Palpitations Respiratory: denies: Cough Skin: denies: Rash Musculoskeletal: denies: Neck pain, Back pain Neurologic: denies: Headache PD PAST MEDICAL HISTORY - Past Medical History Cardiovascular: Coronary artery disease, Other Respiratory: Asthma Endocrine/Autoimmune: Type 2 diabetes GI: GERD, Hiatal hernia, Other : None HEENT: None Psych: None Musculoskeletal: Osteoarthritis, Chronic back pain Derm: None - Past Surgical History Past Surgical History: Yes General: Cholecystectomy, Hiatal hernia repair Ortho: Carpal Tunnel surgery /[employer]: section, Hysterectomy Cardiovascular: Cardiac catheterization - Present Medications Home Medications: Ambulatory Orders Medication Instructions Recorded Confirmed Citalopram [CeleXA] 10 mg PO DAILY 04/27/18 04/28/18 Albuterol Sulfate [Proair 2 puffs INH Q4H PRN 04/28/18 04/28/18 Respiclick] Atorvastatin Calcium 40 mg PO QPM 04/28/18 04/28/18 Fluticasone 110 Mcg [Flovent] 2 puffs INH BID 04/28/18 04/28/18 Metformin HCl [Glucophage] 1,000 mg PO BID 04/28/18 04/28/18 Omeprazole 40 mg PO QDAC 04/28/18 04/28/18 QUEtiapine [SEROquel] 200 mg PO QPM 04/28/18 04/28/18 Atorvastatin [Lipitor] 10 mg PO QPM tablet 04/29/18 - Allergies Allergies/Adverse Reactions: Allergies Allergy/AdvReac Type Severity Reaction Status Date / Time No Known Drug Allergies Allergy Verified 08/06/21 18:22 - Social History Does the pt smoke?: No Smoking Status: Never smoker Does the pt drink ETOH?: Yes Does the pt have substance abuse?: No - Immunizations Immunizations are current?: Yes - POLST Patient has POLST: No POLST Status: Full Code PD ED PE NORMAL - Vitals Vital signs reviewed: Yes - General General: Alert and oriented X 3, Other (Appears very anxious and restless) - HEENT HEENT: PERRL, Moist mucous membranes, Pharynx benign - Neck Neck: Supple, no meningeal sign - Cardiac Cardiac: RRR, Strong equal pulses - Respiratory Respiratory: No respiratory distress, Clear bilaterally - Abdomen Abdomen: Soft, Non tender, Non distended - Derm Derm: Warm and dry - Extremities Extremities: No edema, No calf tenderness / cord - Neuro Neuro: Alert and oriented X 3 Results - Vitals Vitals: Vital Signs - 24 hr 08/06/21 08/06/21 08/06/21 18:15 19:38 20:05 Temperature 36.1 C L Heart Rate 92 85 88 Respiratory 26 H 28 H 16 Rate Blood Pressure 147/117 H 100/80 163/114 H O2 Saturation 99 98 98 08/06/21 08/06/21 08/06/21 20:11 20:24 21:19 Temperature 35.7 C L Heart Rate 81 92 91 Respiratory 19 18 21 Rate Blood Pressure 115/103 H 115/103 H 162/91 H O2 Saturation 97 98 96 Oxygen O2 Source Room air - Labs Labs: Laboratory Tests 08/06/21 08/06/21 08/06/21 18:43 18:43 18:43 WBC 12.0 H RBC 5.17 Hgb 15.3 Hct 44.6 MCV 86.3 MCH 29.6 MCHC 34.3 RDW 13.1 Plt Count 252 MPV 10.7 Neut # (Auto) 7.9 H Lymph # (Auto) 3.0 Bos[place] # (Auto) 0.8 Eos # (Auto) 0.1 Baso # (Auto) 0.1 Absolute Nucleated RBC 0.00 Nucleated RBC % 0.0 Sodium 136 Potassium 3.5 Chloride 100 L Carbon Dioxide 19 L Anion Gap 17.0 H BUN 14 Creatinine 0.7 Estimated GFR (MDRD) 86 L Glucose 101 H Calcium 10.2 Total Bilirubin 0.4 AST 20 ALT 17 Alkaline Phosphatase 59 Total Protein 7.9 Albumin 4.4 Globulin 3.5 Albumin/Globulin Ratio 1.3 Lipase 140 H TSH 0.82 Urine Color Urine Clarity Urine pH Ur Specific [place] Urine Protein Urine Glucose (UA) Urine Ketones Urine Occult Blood Urine Nitrite Urine Bilirubin Urine Urobilinogen Ur Leukocyte Esterase Ur Microscopic Review Urine Culture Comments Urine HCG, Qual Nasal Adenovirus (PCR) Nasal B. parapertussis DNA (PCR) Nasal Coronavir 229E PCR Nasal Coronavir HKU1 PCR Nasal Coronavir NL63 PCR Nasal Coronavir OC43 PCR Nasal Enterovir/Rhinovir PCR Nasal Influenza B PCR Nasal Influenza A PCR Nasal Parainfluen 1 PCR Nasal Parainfluen 2 PCR Nasal Parainfluen 3 PCR Nasal Parainfluen 4 PCR Nasal RSV (PCR) Nasal B.pertussis DNA PCR Nasal C.pneumoniae (PCR) Chirag Human Metapneumo PCR Nasal M.pneumoniae (PCR) Nasal SARS-CoV-2 (PCR) Salicylates < 6.0 Urine Opiates Screen Ur Oxycodone Screen Urine Methadone Screen Ur Propoxyphene Screen Acetaminophen < 10 L Ur Barbiturates Screen Ur Tricyclics Screen Ur Phencyclidine Scrn Ur Amphetamine Screen U Methamphetamines Scrn U Benzodiazepines Scrn Urine Cocaine Screen U Cannabinoids Screen Ethyl Alcohol < 5.0 08/06/21 08/06/21 18:43 19:40 WBC RBC Hgb Hct MCV MCH MCHC RDW Plt Count MPV Neut # (Auto) Lymph # (Auto) [place] # (Auto) Eos # (Auto) Baso # (Auto) Absolute Nucleated RBC Nucleated RBC % Sodium Potassium Chloride Carbon Dioxide Anion Gap BUN Creatinine Estimated GFR (MDRD) Glucose Calcium Total Bilirubin AST ALT Alkaline Phosphatase Total Protein Albumin Globulin Albumin/Globulin Ratio Lipase TSH Urine Color YELLOW Urine Clarity CLEAR Urine pH 8.5 H Ur Specific [place] 1.015 Urine Protein NEGATIVE Urine Glucose (UA) NEGATIVE Urine Ketones TRACE Urine Occult Blood NEGATIVE Urine Nitrite NEGATIVE Urine Bilirubin NEGATIVE Urine Urobilinogen 0.2 (NORMAL) Ur Leukocyte Esterase NEGATIVE Ur Microscopic Review NOT INDICATED Urine Culture Comments NOT INDICATED Urine HCG, Qual NEGATIVE Nasal Adenovirus (PCR) NOT DETECTED Nasal B. parapertussis DNA (PCR) NOT DETECTED Nasal Coronavir 229E PCR NOT DETECTED Nasal Coronavir HKU1 PCR NOT DETECTED Nasal Coronavir NL63 PCR NOT DETECTED Nasal Coronavir OC43 PCR NOT DETECTED Nasal Enterovir/Rhinovir PCR NOT DETECTED Nasal Influenza B PCR NOT DETECTED Nasal Influenza A PCR NOT DETECTED Nasal Parainfluen 1 PCR NOT DETECTED Nasal Parainfluen 2 PCR NOT DETECTED Nasal Parainfluen 3 PCR NOT DETECTED Nasal Parainfluen 4 PCR NOT DETECTED Nasal RSV (PCR) NOT DETECTED Nasal B.pertussis DNA PCR NOT DETECTED Nasal C.pneumoniae (PCR) NOT DETECTED Chirag Human Metapneumo PCR NOT DETECTED Nasal M.pneumoniae (PCR) NOT DETECTED Nasal SARS-CoV-2 (PCR) NOT DETECTED Salicylates Urine Opiates Screen NEGATIVE Ur Oxycodone Screen POSITIVE H Urine Methadone Screen NEGATIVE Ur Propoxyphene Screen NEGATIVE Acetaminophen Ur Barbiturates Screen NEGATIVE Ur Tricyclics Screen NEGATIVE Ur Phencyclidine Scrn NEGATIVE Ur Amphetamine Screen NEGATIVE U Methamphetamines Scrn NEGATIVE U Benzodiazepines Scrn NEGATIVE Urine Cocaine Screen NEGATIVE U Cannabinoids Screen NEGATIVE Ethyl Alcohol PD MEDICAL DECISION MAKING - ED course Complexity details: reviewed results, re-evaluated patient, considered differential, d/w patient ED course: 56-year-old female with a narcotic abuse issue. She has been buying 30 mg oxycodone pills off the street and has been taking 120 to 180 mg a day for the past 6 months. Now in withdrawal. Given a dose of Ativan and buprenorphine. There is a bed at the [facility] detox facility, we will try to get her placed there tonight for detox. Patient is signed out to the [facility] emergency department physician awaiting acceptance at the detox facility. This document was made in part using voice recognition software. While efforts are made to proofread this document, sound alike and grammatical errors may occur. Departure - Departure Clinical Impression: Narcotic abuse, Narcotic withdrawal Condition: Stable
[2021-08-06 18:55] LABS: BASOPHILS # (AUTO) 0.1 10^3/uL (0.0-0.1); BASOPHILS % (AUTO) 0.4 %; EOSINOPHILS # (AUTO) 0.1 10^3/uL (0.0-0.7); EOSINOPHILS % (AUTO) 1.1 %; HCT - HEMATOCRIT 44.6 % (37.0-47.0); HGB - HEMOGLOBIN 15.3 g/dL (12.0-16.0); LYMPHOCYTES % (AUTO) 24.9 %; MEAN CORPUSCULAR HEMOGLOBIN 29.6 pg (27.0-31.0); MEAN CORPUSCULAR HGB CONC 34.3 g/dL (32.0-36.0); MEAN CORPUSCULAR VOLUME 86.3 fL (81.0-99.0); MEAN PLATELET VOLUME 10.7 fL (7.9-10.8); MONOCYTES # (AUTO) 0.8 10^3/uL (0.0-1.0); MONOCYTES % (AUTO) 6.9 %; NEUTROPHILS # (AUTO) 7.9 10^3/uL (1.5-6.6); NEUTROPHILS % (AUTO) 66.4 %; PLT - PLATELET COUNT 252 10^3/uL (130-450); RED BLOOD COUNT 5.17 10^6/uL (4.20-5.40); RED CELL DISTRIBUTION WIDTH 13.1 % (12.0-15.0)
[2021-08-06 19:03] LABS: ACETAMINOPHEN < 10 ug/mL (10-30); ALBUMIN 4.4 g/dL (3.2-5.5); ALBUMIN/GLOBULIN RATIO 1.3 (1.0-2.2); ALKALINE PHOSPHATASE 59 IU/L (42-121); ALT ALANINE AMINOTRANSFERASE 17 IU/L (10-60); AST ASPARTATE AMINOTRANSFERASE 20 IU/L (10-42); BILIRUBIN,TOTAL 0.4 mg/dL (0.2-1.0); BUN - BLOOD UREA NITROGEN 14 mg/dL (6-20); CALCIUM 10.2 mg/dL (8.5-10.3); CARBON DIOXIDE - CO2 19 mmol/L (21-32); CHLORIDE 100 mmol/L (101-111); CREATININE 0.7 mg/dL (0.4-1.0); ETOH - ETHANOL < 5.0 mg/dL; GFR - MDRD 86 (>89); GLUCOSE 101 mg/dL (70-100); LIPASE 140 U/L (22-51); POTASSIUM 3.5 mmol/L (3.5-5.0); SALICYLATE < 6.0 mg/dL; SODIUM 136 mmol/L (135-145); TOTAL PROTEIN 7.9 g/dL (6.7-8.2)
[2021-08-06] MEDS ORDERED: LORazepam 2 MG/ML VIAL IVP STA (19:12)
[2021-08-06 19:41] LABS: B. PARAPERTUSSIS- RESP PCR PAN NOT DETECTED; B. PERTUSSIS- RESP PCR PANEL NOT DETECTED; C. PNEUMONIAE- RESP PCR PANEL NOT DETECTED; CORONAVIRUS 229E-RESP PCR NOT DETECTED; CORONAVIRUS HKU1-RESP PCR NOT DETECTED; CORONAVIRUS NL63-RESP PCR NOT DETECTED; CORONAVIRUS OC43-RESP PCR NOT DETECTED; HUMAN METAPNEUMOVIRUS NOT DETECTED; INFLUENZA A- RESP PCR PANEL NOT DETECTED; INFLUENZA B - RESP PCR PANEL NOT DETECTED; M. PNEUMONIAE- RESP PCR PANEL NOT DETECTED; PARAINFLUENZA VIRUS 1 NOT DETECTED; PARAINFLUENZA VIRUS 2 NOT DETECTED; PARAINFLUENZA VIRUS 3 NOT DETECTED; PARAINFLUENZA VIRUS 4 NOT DETECTED; RHINOVIRUS/ENTEROVIRUS NOT DETECTED; RSV- RESP PCR PANEL NOT DETECTED; SARS-CoV-2 -RESP PCR PANEL NOT DETECTED
[2021-08-06 19:46] LABS: MUDS CUTOFF CONCENTRATIONS CUTOFF CONC BELOW:
[2021-08-06 19:49] LABS: BILIRUBIN,URINE NEGATIVE (NEGATIVE); GLUCOSE, URINE (UA) NEGATIVE (NEGATIVE); KETONES,URINE (UA) TRACE mg/dL (NEGATIVE); LEUKOCYTE ESTERASE, URINE NEGATIVE (NEGATIVE); NITRITE,URINE NEGATIVE (NEGATIVE); OCCULT BLOOD,URINE NEGATIVE (NEGATIVE); PH,URINE 8.5 PH (5.0-7.5); PROTEIN,URINE NEGATIVE (NEGATIVE); UROBILINOGEN,URINE 0.2 (NORMAL) E.U./dL (NORMAL)
[2021-08-06 19:50] LABS: CLARITY,URINE CLEAR (CLEAR); HCG UR QUAL NEGATIVE
[2021-08-06 19:58] LABS: AMPHETAMINE SCREEN,URINE NEGATIVE (NEGATIVE); BARBITURATE SCREEN,UR NEGATIVE (NEGATIVE); BENZODIAZEPINES SCREEN, URINE NEGATIVE (NEGATIVE); COCAINE SCREEN URINE NEGATIVE (NEGATIVE); METHADONE SCREEN, URINE NEGATIVE (NEGATIVE); METHAMPHETAMINES SCREEN, URINE NEGATIVE (NEGATIVE); OPIATE SCREEN, URINE NEGATIVE (NEGATIVE); OXYCODONE SCREEN, URINE POSITIVE (NEGATIVE); PROPOXYPHENE SCREEN, URINE NEGATIVE (NEGATIVE); THC CANNABINOID SCREEN, URINE NEGATIVE (NEGATIVE); TRICYCLIC ANTIDEPRESSANT,URINE NEGATIVE (NEGATIVE)
--- NOTE | 2021-08-07 07:08 | ED Physician Documentation ---
ED Addendum - Addendum Addendum: 08/07/21 07:06The patient remained sleeping and stable through the late evening and overnight. In the evening after change of shift, the ER nursing attempted calling [facility] ([facility] facility several times without any answer from them. We were unable to get her evaluated by that facility because of that. We will try again this morning.
[2021-08-07] MEDS ORDERED: BUPRENORPHINE 0.3 MG/ML VIAL IVP ONE (08:52)
[2021-08-07] MEDS ORDERED: LORazepam 2 MG/ML VIAL IVP STA (09:32)
--- NOTE | 2021-08-07 13:02 | ED Physician Documentation ---
ED Addendum - Addendum Addendum: 08/07/21 13:01 56-year-old female undergoing narcotic withdrawal is quite uncomfortable this morning she requires a second dose of buprenorphine and some Ativan feels some improved is beginning to calm down and we are discharging her to [facility].
[2021-08-07 13:10] VITALS: BP 140/75
== END 2021-08-07 14:09 | disposition home or self-care (01) ==
LOC: EDUNIT# → ED 18:14 → SUPCPDRO 18:14 → ED 08-07 14:09
DX: F11.13 Opioid abuse with withdrawal (principal); F41.9 Anxiety disorder, unspecified; Z20.822 Contact with and (suspected) exposure to COVID-19; E11.9 Type 2 diabetes mellitus without complications; Z79.84 Long term (current) use of oral hypoglycemic drugs
CPT/HCPCS: 0202U; 36415; 51701; 80053; 80306; 80307; 80320; 80329; 81003; 81025; 83690; 84443; 85025; 96374; 96375; 96376; 99284; J0592; J2060; 81001; 87086

== ENCOUNTER 2021-11-17 14:56 | Outpatient (CLI) | payer OTHER | END 2021-11-17 14:57 | disposition critical access hospital (66) | LOC: EMS 14:56 | DX: R41.0 Disorientation, unspecified (principal); R51.9 Headache, unspecified; H91.23 Sudden idiopathic hearing loss, bilateral; R47.81 Slurred speech; R53.1 Weakness | CPT/HCPCS: A0425; A0427 ==

== ENCOUNTER 2021-11-17 15:13 | Emergency (ER) | payer OTHER ==
--- NOTE | 2021-11-17 15:26 | ED Physician Documentation ---
PD HPI FOCAL NEURO - Stated complaint Stated Complaint: CVA - History obtained from History obtained from: Patient, EMS - Additional information Additional information: 56-year-old woman with history of narcotic abuse, type 2 diabetes, history of NSTEMI with clean angiogram, depression, anxiety, GERD, diverticulitis, chronic back pain, multiple hernia repairs, multiple bowel obstructions, and multiple abdominal surgeries presents to the emergency department as a stroke code. Her coworkers went over to her house today reportedly because she had missed a meeting. They found her down. She was complaining of headache and had an episode of emesis. Is not when clear when this started. 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 As such communication is by lip reading and writing now. And she does seem confused. Review of Systems Unable to obtain: Confused PD PAST MEDICAL HISTORY - Past Medical History Cardiovascular: Coronary artery disease, Other Respiratory: Asthma Endocrine/Autoimmune: Type 2 diabetes GI: GERD, Hiatal hernia, Other : None HEENT: None Psych: None Musculoskeletal: Osteoarthritis, Chronic back pain Derm: None - Past Surgical History Past Surgical History: Yes General: Cholecystectomy, Hiatal hernia repair Ortho: Carpal Tunnel surgery /POCKET CUTTER: section, Hysterectomy Cardiovascular: Cardiac catheterization - Present Medications Home Medications: Ambulatory Orders Medication Instructions Recorded Confirmed Citalopram [CeleXA] 10 mg PO DAILY 04/27/18 04/28/18 Albuterol Sulfate [Proair 2 puffs INH Q4H PRN 04/28/18 04/28/18 Respiclick] Atorvastatin Calcium 40 mg PO QPM 04/28/18 04/28/18 Fluticasone 110 Mcg [Flovent] 2 puffs INH BID 04/28/18 04/28/18 Metformin HCl [Glucophage] 1,000 mg PO BID 04/28/18 04/28/18 Omeprazole 40 mg PO QDAC 04/28/18 04/28/18 QUEtiapine [SEROquel] 200 mg PO QPM 04/28/18 04/28/18 Atorvastatin [Lipitor] 10 mg PO QPM tablet 04/29/18 - Allergies Allergies/Adverse Reactions: Allergies Allergy/AdvReac Type Severity Reaction Status Date / Time No Known Drug Allergies Allergy Verified 11/17/21 15:20 - Social History Does the pt smoke?: No Smoking Status: Never smoker Does the pt drink ETOH?: Yes Does the pt have substance abuse?: No - Immunizations Immunizations are current?: Yes - POLST Patient has POLST: No POLST Status: Full Code PD ED PE NORMAL - Vitals Vital signs reviewed: Yes (She is hypoxic) - General General: Other (She is alert and oriented to person, seems to be able to give some details of history. She knows it is November but not the date stating it is the . She is covered in vomit. She seems densely deaf which is reportedly new. She is able to read lips albeit not with the acumen of a deaf person) - HEENT HEENT: PERRL, EOMI - Neck Neck: Supple, no meningeal sign, No bony TTP - Cardiac Cardiac: RRR, No murmur - Respiratory Respiratory: No respiratory distress, Clear bilaterally - Abdomen Abdomen: Normal bowel sounds, Soft, Non tender - Back Back: No CVA TTP, No spinal TTP - Derm Derm: Normal color, Warm and dry - Neuro Neuro: No motor deficit, No sensory deficit, Normal speech, Other (She seems to be able to move all 4 extremities with good strength and can feel all 4 extremities. Otherwise the remainder of the stroke exam was deferred until after CT.) Eye Opening: Spontaneous Motor: Obeys Commands Verbal: Confused GCS Score: 14 Results - Vitals Vitals: Vital Signs - 24 hr 11/17/21 11/17/21 11/17/21 15:20 15:27 15:57 Temperature 36.5 C 36.5 C Heart Rate 110 H 110 H 105 H Respiratory 20 20 15 Rate Blood Pressure 160/100 H 160/100 H 148/93 H O2 Saturation 85 L 94 93 11/17/21 11/17/21 11/17/21 16:27 16:30 17:30 Temperature Heart Rate 110 H 108 H 80 Respiratory 18 14 20 Rate Blood Pressure 116/96 H 118/78 160/80 H O2 Saturation 92 92 97 11/17/21 11/17/21 11/17/21 18:00 18:30 18:38 Temperature Heart Rate 104 H 102 H 109 H Respiratory 18 16 12 Rate Blood Pressure 136/91 H 134/88 H 151/88 H O2 Saturation 95 95 97 11/17/21 11/17/21 11/17/21 19:00 19:30 20:00 Temperature Heart Rate 109 H 110 H 112 H Respiratory 20 18 16 Rate Blood Pressure 150/88 H 136/88 H 130/90 H O2 Saturation 96 97 96 11/17/21 11/17/21 11/17/21 20:30 21:00 21:30 Temperature 37.5 C Heart Rate 112 H 109 H 110 H Respiratory 16 16 16 Rate Blood Pressure 124/85 H 134/71 H 134/71 H O2 Saturation 94 95 95 11/17/21 11/17/21 22:00 22:30 Temperature Heart Rate 110 H 107 H Respiratory 16 16 Rate Blood Pressure 145/74 H 150/80 H O2 Saturation 94 95 Oxygen O2 Source Nasal cannula Oxygen Flow Rate 4 - EKG (time done) 1517 Rate: Rate (enter#) (110) Rhythm: Sinus tachycardia Ralph: Normal Intervals: Normal AL QRS: Normal Ischemia: Normal ST segments - Labs Labs: Microbiology 11/17/21 18:36 CSF Culture - Preliminary Cerebral Spinal Fluid Laboratory Tests 11/17/21 11/17/21 11/17/21 16:15 16:15 16:45 WBC 26.5 H RBC 4.39 Hgb 13.4 Hct 39.8 MCV 90.7 MCH 30.5 MCHC 33.7 RDW 13.8 Plt Count 247 MPV 10.1 Neut # (Auto) Not Reportable Lymph # (Auto) Not Reportable [place] # (Auto) Not Reportable Eos # (Auto) Not Reportable Baso # (Auto) Not Reportable Absolute Nucleated RBC Not Reportable Total Counted 100 Band Neuts % (Manual) 21 H Reactive Lymphs % (Man) 1 Abnorm Lymph % (Manual) 0 Nucleated RBC % Not Reportable Neutrophils # (Manual) 24.1 H Lymphocytes # (Manual) 1.3 L Monocytes # (Manual) 1.1 H Eosinophils # (Manual) 0.0 Basophils # (Manual) 0.0 Differential Comment MANUAL DIFFERENTIAL Platelet Estimate NORMAL (130-450,000) Platelet Morphology NORMAL APPEARANCE RBC Morph Micro Appear NORMAL APPEARANCE PT INR VBG pH VBG pCO2 VBG pO2 VBG HCO3 VBG Total CO2 VBG O2 Saturation VBG Base Excess VBG Total Hgb VBG Oxyhemoglobin VBG Carboxyhemoglobin VBG Methemoglobin Sodium Potassium Chloride Carbon Dioxide Anion Gap BUN Creatinine Estimated GFR (MDRD) Glucose Lactic Acid Calcium Magnesium Total Bilirubin AST ALT Alkaline Phosphatase Total Creatine Kinase Troponin I High Sens Total Protein Albumin Globulin Albumin/Globulin Ratio TSH Urine Color YELLOW Urine Clarity SL. CLOUDY Urine pH 5.5 Ur Specific [place] >=1.030 H Urine Protein 30 H Urine Glucose (UA) NEGATIVE Urine Ketones NEGATIVE Urine Occult Blood LARGE H Urine Nitrite NEGATIVE Urine Bilirubin NEGATIVE Urine Urobilinogen 0.2 (NORMAL) Ur Leukocyte Esterase NEGATIVE Urine RBC 6-10 H Urine WBC 0-3 Ur Squamous Epith Cells RARE Squamous Urine Bacteria Rare Urine Casts 6-10 Cellular Casts Ur Microscopic Review INDICATED Urine Culture Comments NOT INDICATED CSF Color CSF Clarity Xanthrochromic CSF WBC CSF RBC CSF Cell Count Tube # CSF Glucose CSF Total Protein Nasal Adenovirus (PCR) NOT DETECTED Nasal B. parapertussis DNA (PCR) NOT DETECTED Nasal Coronavir 229E PCR NOT DETECTED Nasal Coronavir HKU1 PCR NOT DETECTED Nasal Coronavir NL63 PCR NOT DETECTED Nasal Coronavir OC43 PCR NOT DETECTED Nasal Enterovir/Rhinovir PCR NOT DETECTED Nasal Influenza B PCR NOT DETECTED Nasal Influenza A PCR NOT DETECTED Nasal Parainfluen 1 PCR NOT DETECTED Nasal Parainfluen 2 PCR NOT DETECTED Nasal Parainfluen 3 PCR NOT DETECTED Nasal Parainfluen 4 PCR NOT DETECTED Nasal RSV (PCR) NOT DETECTED Nasal B.pertussis DNA PCR NOT DETECTED Nasal C.pneumoniae (PCR) NOT DETECTED Chirag Human Metapneumo PCR NOT DETECTED Nasal M.pneumoniae (PCR) NOT DETECTED Nasal SARS-CoV-2 (PCR) NOT DETECTED Salicylates Urine Opiates Screen NEGATIVE Ur Oxycodone Screen NEGATIVE Urine Methadone Screen NEGATIVE Ur Propoxyphene Screen NEGATIVE Acetaminophen Ur Barbiturates Screen NEGATIVE Ur Tricyclics Screen POSITIVE H Ur Phencyclidine Scrn NEGATIVE Ur Amphetamine Screen NEGATIVE U Methamphetamines Scrn POSITIVE H U Benzodiazepines Scrn POSITIVE H Urine Cocaine Screen NEGATIVE U Cannabinoids Screen NEGATIVE Ethyl Alcohol 11/17/21 11/17/21 11/17/21 16:45 16:45 16:45 WBC RBC Hgb Hct MCV MCH MCHC RDW Plt Count MPV Neut # (Auto) Lymph # (Auto) [place] # (Auto) Eos # (Auto) Baso # (Auto) Absolute Nucleated RBC Total Counted Band Neuts % (Manual) Reactive Lymphs % (Man) Abnorm Lymph % (Manual) Nucleated RBC % Neutrophils # (Manual) Lymphocytes # (Manual) Monocytes # (Manual) Eosinophils # (Manual) Basophils # (Manual) Differential Comment Platelet Estimate Platelet Morphology RBC Morph Micro Appear PT 12.3 INR 1.1 VBG pH VBG pCO2 VBG pO2 VBG HCO3 VBG Total CO2 VBG O2 Saturation VBG Base Excess VBG Total Hgb VBG Oxyhemoglobin VBG Carboxyhemoglobin VBG Methemoglobin Sodium 133 L Potassium 5.1 H Chloride 95 L Carbon Dioxide 22 Anion Gap 16.0 H BUN 28 H Creatinine 1.7 H Estimated GFR (MDRD) 31 L Glucose 168 H Lactic Acid Calcium 7.5 L Magnesium 1.8 Total Bilirubin 0.4 AST 142 H ALT 63 H Alkaline Phosphatase 77 Total Creatine Kinase 6059 H* Troponin I High Sens Total Protein 7.1 Albumin 3.6 Globulin 3.5 Albumin/Globulin Ratio 1.0 TSH 1.56 Urine Color Urine Clarity Urine pH Ur Specific [place] Urine Protein Urine Glucose (UA) Urine Ketones Urine Occult Blood Urine Nitrite Urine Bilirubin Urine Urobilinogen Ur Leukocyte Esterase Urine RBC Urine WBC Ur Squamous Epith Cells Urine Bacteria Urine Casts Ur Microscopic Review Urine Culture Comments CSF Color CSF Clarity Xanthrochromic CSF WBC CSF RBC CSF Cell Count Tube # CSF Glucose CSF Total Protein Nasal Adenovirus (PCR) Nasal B. parapertussis DNA (PCR) Nasal Coronavir 229E PCR Nasal Coronavir HKU1 PCR Nasal Coronavir NL63 PCR Nasal Coronavir OC43 PCR Nasal Enterovir/Rhinovir PCR Nasal Influenza B PCR Nasal Influenza A PCR Nasal Parainfluen 1 PCR Nasal Parainfluen 2 PCR Nasal Parainfluen 3 PCR Nasal Parainfluen 4 PCR Nasal RSV (PCR) Nasal B.pertussis DNA PCR Nasal C.pneumoniae (PCR) Chirag Human Metapneumo PCR Nasal M.pneumoniae (PCR) Nasal SARS-CoV-2 (PCR) Salicylates < 6.0 Urine Opiates Screen Ur Oxycodone Screen Urine Methadone Screen Ur Propoxyphene Screen Acetaminophen < 10 L Ur Barbiturates Screen Ur Tricyclics Screen Ur Phencyclidine Scrn Ur Amphetamine Screen U Methamphetamines Scrn U Benzodiazepines Scrn Urine Cocaine Screen U Cannabinoids Screen Ethyl Alcohol < 5.0 11/17/21 11/17/21 11/17/21 16:45 16:45 16:45 WBC RBC Hgb Hct MCV MCH MCHC RDW Plt Count MPV Neut # (Auto) Lymph # (Auto) [place] # (Auto) Eos # (Auto) Baso # (Auto) Absolute Nucleated RBC Total Counted Band Neuts % (Manual) Reactive Lymphs % (Man) Abnorm Lymph % (Manual) Nucleated RBC % Neutrophils # (Manual) Lymphocytes # (Manual) Monocytes # (Manual) Eosinophils # (Manual) Basophils # (Manual) Differential Comment Platelet Estimate Platelet Morphology RBC Morph Micro Appear PT INR VBG pH 7.254 L VBG pCO2 50.4 VBG pO2 61.1 H VBG HCO3 21.8 L VBG Total CO2 23.4 L VBG O2 Saturation 90.8 H VBG Base Excess -5.7 L VBG Total Hgb 14.2 VBG Oxyhemoglobin 85 L VBG Carboxyhemoglobin 6.0 H VBG Methemoglobin 0.2 Sodium Potassium Chloride Carbon Dioxide Anion Gap BUN Creatinine Estimated GFR (MDRD) Glucose Lactic Acid Calcium Magnesium Total Bilirubin AST ALT Alkaline Phosphatase Total Creatine Kinase Troponin I High Sens 785.2 H* Total Protein Albumin Globulin Albumin/Globulin Ratio TSH Urine Color Urine Clarity Urine pH Ur Specific [place] Urine Protein Urine Glucose (UA) Urine Ketones Urine Occult Blood Urine Nitrite Urine Bilirubin Urine Urobilinogen Ur Leukocyte Esterase Urine RBC Urine WBC Ur Squamous Epith Cells Urine Bacteria Urine Casts Ur Microscopic Review Urine Culture Comments CSF Color CSF Clarity Xanthrochromic CSF WBC CSF RBC CSF Cell Count Tube # CSF Glucose CSF Total Protein Nasal Adenovirus (PCR) Nasal B. parapertussis DNA (PCR) Nasal Coronavir 229E PCR Nasal Coronavir HKU1 PCR Nasal Coronavir NL63 PCR Nasal Coronavir OC43 PCR Nasal Enterovir/Rhinovir PCR Nasal Influenza B PCR Nasal Influenza A PCR Nasal Parainfluen 1 PCR Nasal Parainfluen 2 PCR Nasal Parainfluen 3 PCR Nasal Parainfluen 4 PCR Nasal RSV (PCR) Nasal B.pertussis DNA PCR Nasal C.pneumoniae (PCR) Chirag Human Metapneumo PCR Nasal M.pneumoniae (PCR) Nasal SARS-CoV-2 (PCR) Salicylates Urine Opiates Screen Ur Oxycodone Screen Urine Methadone Screen Ur Propoxyphene Screen Acetaminophen Ur Barbiturates Screen Ur Tricyclics Screen Ur Phencyclidine Scrn Ur Amphetamine Screen U Methamphetamines Scrn U Benzodiazepines Scrn Urine Cocaine Screen U Cannabinoids Screen Ethyl Alcohol 11/17/21 11/17/21 17:51 18:36 WBC RBC Hgb Hct MCV MCH MCHC RDW Plt Count MPV Neut # (Auto) Lymph # (Auto) [place] # (Auto) Eos # (Auto) Baso # (Auto) Absolute Nucleated RBC Total Counted Band Neuts % (Manual) Reactive Lymphs % (Man) Abnorm Lymph % (Manual) Nucleated RBC % Neutrophils # (Manual) Lymphocytes # (Manual) Monocytes # (Manual) Eosinophils # (Manual) Basophils # (Manual) Differential Comment Platelet Estimate Platelet Morphology RBC Morph Micro Appear PT INR VBG pH VBG pCO2 VBG pO2 VBG HCO3 VBG Total CO2 VBG O2 Saturation VBG Base Excess VBG Total Hgb VBG Oxyhemoglobin VBG Carboxyhemoglobin VBG Methemoglobin Sodium Potassium Chloride Carbon Dioxide Anion Gap BUN Creatinine Estimated GFR (MDRD) Glucose Lactic Acid 2.4 H Calcium Magnesium Total Bilirubin AST ALT Alkaline Phosphatase Total Creatine Kinase Troponin I High Sens Total Protein Albumin Globulin Albumin/Globulin Ratio TSH Urine Color Urine Clarity Urine pH Ur Specific [place] Urine Protein Urine Glucose (UA) Urine Ketones Urine Occult Blood Urine Nitrite Urine Bilirubin Urine Urobilinogen Ur Leukocyte Esterase Urine RBC Urine WBC Ur Squamous Epith Cells Urine Bacteria Urine Casts Ur Microscopic Review Urine Culture Comments CSF Color COLORLESS CSF Clarity CLEAR Xanthrochromic ABSENT CSF WBC 4 CSF RBC 1 CSF Cell Count Tube # CSF TUBE# 3 CSF Glucose 122 H CSF Total Protein 57 H Nasal Adenovirus (PCR) Nasal B. parapertussis DNA (PCR) Nasal Coronavir 229E PCR Nasal Coronavir HKU1 PCR Nasal Coronavir NL63 PCR Nasal Coronavir OC43 PCR Nasal Enterovir/Rhinovir PCR Nasal Influenza B PCR Nasal Influenza A PCR Nasal Parainfluen 1 PCR Nasal Parainfluen 2 PCR Nasal Parainfluen 3 PCR Nasal Parainfluen 4 PCR Nasal RSV (PCR) Nasal B.pertussis DNA PCR Nasal C.pneumoniae (PCR) Chirag Human Metapneumo PCR Nasal M.pneumoniae (PCR) Nasal SARS-CoV-2 (PCR) Salicylates Urine Opiates Screen Ur Oxycodone Screen Urine Methadone Screen Ur Propoxyphene Screen Acetaminophen Ur Barbiturates Screen Ur Tricyclics Screen Ur Phencyclidine Scrn Ur Amphetamine Screen U Methamphetamines Scrn U Benzodiazepines Scrn Urine Cocaine Screen U Cannabinoids Screen Ethyl Alcohol - Rads (name of study) CT and CT angiography of the head are unremarkable Radiology: EMP read contemporaneously CTA Neck Radiology: EMP read contemporaneously (Very diminutive right vertebral artery appears to have a short segment focal stenosis at distal right V3 portion with seemingly adequately collateralization across the stenosis resulting in reconstitution of the V4 segment. Markedly diminutive and contributing very little to the basilar circulation) Procedures - Lumbar Puncture Position: Laying left side Location: L3-L4 Anesthesia: Local lidocaine CSF: Clear Other: Sterile prep and drape, Patient tolerated well PD MEDICAL DECISION MAKING - ED course ED course: 56-year-old woman with the above comorbidities presents with a very odd presentation of vomiting, acute deafness, and headache. The deafness is bilateral and seems fairly dense. She was taken over for CT and CT angiography. The initial CT was read as being unremarkable. I discussed the case by phone with telestroke neurologist, Dr. Turcios at approximately 3:55 PM who agrees this is a very odd case but given the circumstances is not a tPA candidate. She will look at the images and call me back but she recommends ordering an MRI of the brain in the interim. I was able to communicate with her bit more on return from CT. She says she remembers this morning but cannot elaborate. She is complaining of chest and back pain and persistent nausea. Also still the headache. She says she felt okay though this morning. She cannot elaborate on when she went deaf, but agrees it was today. Spoke with daughter by phone. Hx drug use a few months ago. Daughter noted a wine box on the table today and noted vomit. Never knew her to use IV drug. She is available by phone at [phone]. An LP was done and unremarkable. MRI was done and showing acute lacunar infarcts. Blood work concerning for sepsis with elevated white count and bandemia. As such she was cultured up and given broad-spectrum antibiotics with cefepime, Flagyl, and vancomycin. Spoke with Dr. Alcantara for potential admission around 8 PM. She would like us to try to find a facility capable of neurology consultation, that may be quite difficult in the face of The current pandemic but we called [facility]. They took her information but they have no beds available for her in their system. We also called [facility] which was unable to accommodate her. As such Dr. Alcantara is willing to admit, [facility] did place her on a waiting list in case a facility with a neurology capable plan was opened up. - Critical Care Time(min): 60 Time Includes: Direct patient care, Review records, Reassess patient, Document care, Coordinate care, Medical consult, Family consult for tx dec Data interpretation: Labs, Pulse ox Procedures included in critical care time: Peripheral IV Procedures excluded from critical care time: Lumbar puncture, EKG Departure - Departure Disposition: 66 [facility] DC/Xfer Clinical Impression: Methamphetamine abuse, Hypoxemia, Elevated troponin Altered mental status Qualifiers: Altered mental status type: delirium Qualified Code(s): R41.0 - Disorientation, unspecified Deaf Qualifiers: Laterality: bilateral Qualified Code(s): H91.93 - Unspecified hearing loss, bilateral Cerebrovascular accident (CVA) Qualifiers: CVA mechanism: unspecified Qualified Code(s): I63.9 - Cerebral infarction, unspecified Rhabdomyolysis Qualifiers: Rhabdomyolysis type: non-traumatic Qualified Code(s): M62.82 - Rhabdomyolysis Sepsis Qualifiers: Sepsis type: sepsis due to unspecified organism Sepsis acute organ dysfunction status: with acute organ dysfunction Severe sepsis acute organ dysfunction type: encephalopathy Severe sepsis shock status: without septic shock Qualified Code(s): A41.9 - Sepsis, unspecified organism; R65.20 - Severe sepsis without septic shock; G93.40 - Encephalopathy, unspecified Condition: Serious
[2021-11-17] MEDS ORDERED: iohexoL-300 100 ML VIAL ONE (15:31)
--- NOTE | 2021-11-17 15:54 | CT Report ---
PROCEDURE: Head W/O Stroke Protocol INDICATIONS: CVA Symptoms TECHNIQUE: Noncontrast 4.5 mm thick angled axial sections acquired from the foramen magnum to the vertex, with c oronal reformats. For radiation dose reduction, the following was used: automated exposure control, adjustment of mA and/or kV according to patient size. COMPARISON: FINDINGS: Image quality: Motion artifact is noted. CSF spaces: Basal cisterns are patent. No extra-axial fluid collections. Ventricles are normal in size and shape. Brain: No midline shift. No intracranial masses or hemorrhage. Pederson-white matter interface is norm al. Skull and face: Calvarium and visualized facial bones are intact, without suspicious lesions. Hyper ostosis frontalis is incidentally noted, which is not frankly abnormal for a female patient of this a ge. Sinuses: Visualized sinuses and mastoids are clear. IMPRESSION: Motion limited study, without findings of acute intracranial hemorrhage. Note: Case discussed by telephone with Dr. Ramirez at 2:49 PM [place] time on 11/17/2021. This study fulfills neurological imaging criteria for inclusion or exclusion of acute stroke therapie s based on available published neurological imaging guidelines. Reviewed by: Jerry Ma MD on 11/17/2021 2:52 PM [facility] Approved by: Jerry Ma MD on 11/17/2021 2:52 PM [facility] Station ID: [id number]
--- NOTE | 2021-11-17 15:58 | XRAY Report ---
PROCEDURE: Chest 1 View X-Ray INDICATIONS: hypoxemia TECHNIQUE: One view of the chest was acquired. COMPARISON: 01/11/2018 FINDINGS: Surgical changes and devices: None. Lungs and pleura: No pleural effusions or pneumothorax. Lungs are clear. Mediastinum: Mediastinal contours appear normal. Heart size is normal. Bones and chest wall: No suspicious bony lesions. Overlying soft tissues appear unremarkable. IMPRESSION: No acute cardiopulmonary disease process. Reviewed by: Nani Warner MD, PhD on 11/17/2021 2:57 PM [facility] Approved by: Nani Warner MD, PhD on 11/17/2021 2:57 PM [facility] Station ID: [id number]
[2021-11-17] MEDS ORDERED: ONDANSETRON 4 MG/2 ML VIAL IVP STA (16:07)
[2021-11-17] MEDS ORDERED: SODIUM CHLORIDE 0.9% 1,000 ML IV STA ×2 (16:07→17:52)
[2021-11-17 16:21] LABS: MUDS CUTOFF CONCENTRATIONS CUTOFF CONC BELOW:
[2021-11-17 16:29] LABS: BILIRUBIN,URINE NEGATIVE (NEGATIVE); CLARITY,URINE SL. CLOUDY (CLEAR); GLUCOSE, URINE (UA) NEGATIVE (NEGATIVE); KETONES,URINE (UA) NEGATIVE (NEGATIVE); LEUKOCYTE ESTERASE, URINE NEGATIVE (NEGATIVE); NITRITE,URINE NEGATIVE (NEGATIVE); OCCULT BLOOD,URINE LARGE (NEGATIVE); PH,URINE 5.5 PH (5.0-7.5); PROTEIN,URINE 30 mg/dL (NEGATIVE); UROBILINOGEN,URINE 0.2 (NORMAL) E.U./dL (NORMAL)
--- NOTE | 2021-11-17 16:31 | CT Report ---
PROCEDURE: ANGIO HEAD W/WO INDICATIONS: Stroke symptoms CONTRAST: IV CONTRAST: Isovue 300 ml: 80 PO CONTRAST: *NO PO CONTRAST TECHNIQUE: Precontrast 4.5 mm thick angled axial sections acquired from the foramen magnum to the vertex. Afte r the administration of intravenous contrast, 1 mm thick sections acquired through the [place] is. Postcontrast 4.5 mm thick sections then re-acquired from the foramen magnum to the vertex. 3-di mensional dfnjbfe-kwahurixi-gunfyzeiai (MIP) and/or volume rendering reformats were acquired of the c entral intracranial vasculature. For radiation dose reduction, the following was used: automated ex posure control, adjustment of mA and/or kV according to patient size. COMPARISON: None. FINDINGS: Image quality: Excellent. Anterior circulation: Intracranial internal carotid arteries are normal in size and flow. The flow within the paired anterior cerebral arteries is normal and symmetric. The flow within the middle cer ebral arteries is normal and symmetric. The anterior communicating artery is seen. No aneurysms are seen. Posterior circulation: Visualized portions of the vertebral arteries demonstrate normal caliber, and join to form a normal appearing basilar artery. Flow within the posterior cerebral arteries is norm al and symmetric. No aneurysms are seen. IMPRESSION: No branch occlusion or flow-limiting stenosis. Reviewed by: Michael Walker MD on 11/17/2021 4:29 PM PST Approved by: Michael Walker MD on 11/17/2021 4:29 PM PST Station ID: [id number]
--- NOTE | 2021-11-17 16:34 | CT Report ---
PROCEDURE: ANGIO NECK W INDICATIONS: Stroke symptoms CONTRAST: IV CONTRAST: Isovue 300 ml: 80 PO CONTRAST: *NO PO CONTRAST TECHNIQUE: After the administration of intravenous contrast, 1.5 mm axial sections acquired from the aortic arch to the [place] of [place]. Coronal 3-D maximum intensity projection (MIP) and/or volume rendering ref ormats were then performed. For radiation dose reduction, the following was used: automated exposur e control, adjustment of mA and/or kV according to patient size. COMPARISON: None. FINDINGS: Image quality: Excellent. Carotid system: The great vessels demonstrate a conventional anatomy as they arise from the aortic a rch. The origins of the common carotid arteries appear patent. The common carotid arteries demonstr ate normal calibers and courses. The bifurcation regions appear normal bilaterally. The internal ca rotid arteries demonstrate normal caliber and course. Posterior circulation: Very diminutive right vertebral artery which appears to terminate in PICA and contributes little if any circulation to the basilar artery. There is a high density appearance of th e right V3 segment at the level of the right C1 transverse foramen with short segment loss of opacifi cation. There is distal reconstitution with appearance of collateralization at the level of the arielle en magnum. The remainder of the right vertebral artery appears widely patent, though diminutive as de scribed above. The left vertebral artery is widely patent and normal in appearance throughout its ent harley course. Soft tissues: Visualized neck soft tissues demonstrate no suspicious abnormalities. The thyroid is normal in size and there are no incidental findings. Bones: No suspicious bony lesions. Visualized cervical spine appears normally aligned. IMPRESSION: Very diminutive right vertebral artery which appears to have a short segment focal stenosis in the di stal right V3 portion with seemingly adequately collateralization across the stenosis resulting in di stal reconstitution of the V4 segment. Markedly diminutive and contributing very little to the basila r circulation. No hemodynamically significant stenosis or occlusion in the anterior circulation. The estimate of stenosis included in the report of the imaging study was calculated using the NASCET method CLINICAL RECOMMENDATION STATEMENTS: In patients <35 years with an ITN detected on CT, MRI, or extrathyroidal ultrasound, the Committee re commends further evaluation with dedicated thyroid ultrasound if the nodule is "e1 cm and has no susp icious imaging features, and if the patient has normal life expectancy. In patients "e35 years with an ITN detected on CT, MRI, or extrathyroidal ultrasound, the Committee r ecommends further evaluation with dedicated thyroid ultrasound if the nodule is "e1.5 cm and has no s uspicious imaging features, and if the patient has normal life expectancy. (ACR, 2014) Reviewed by: Michael Walker MD on 11/17/2021 4:33 PM PST Approved by: Michael Walker MD on 11/17/2021 4:33 PM PST Station ID: [id number]
[2021-11-17 16:57] LABS: BACTERIA,URINE Rare /HPF (None Seen); CASTS, URINE 6-10 Cellular Casts /LPF; OXYCODONE SCREEN, URINE NEGATIVE (NEGATIVE); PROPOXYPHENE SCREEN, URINE NEGATIVE (NEGATIVE); SQUAMOUS EPITHELIAL CELL,UR RARE Squamous (<= Few); WBC,URINE 0-3 /HPF (0-5)
[2021-11-17 16:58] LABS: AMPHETAMINE SCREEN,URINE NEGATIVE (NEGATIVE); BARBITURATE SCREEN,UR NEGATIVE (NEGATIVE); BENZODIAZEPINES SCREEN, URINE POSITIVE (NEGATIVE); COCAINE SCREEN URINE NEGATIVE (NEGATIVE); METHADONE SCREEN, URINE NEGATIVE (NEGATIVE); METHAMPHETAMINES SCREEN, URINE POSITIVE (NEGATIVE); OPIATE SCREEN, URINE NEGATIVE (NEGATIVE); THC CANNABINOID SCREEN, URINE NEGATIVE (NEGATIVE); TRICYCLIC ANTIDEPRESSANT,URINE POSITIVE (NEGATIVE)
[2021-11-17 17:02] LABS: BASOPHILS % (AUTO) 0.6 %; EOSINOPHILS % (AUTO) 0.1 %; HCT - HEMATOCRIT 39.8 % (37.0-47.0); HGB - HEMOGLOBIN 13.4 g/dL (12.0-16.0); LYMPHOCYTES % (AUTO) 8.7 %; MEAN CORPUSCULAR HEMOGLOBIN 30.5 pg (27.0-31.0); MEAN CORPUSCULAR HGB CONC 33.7 g/dL (32.0-36.0); MEAN CORPUSCULAR VOLUME 90.7 fL (81.0-99.0); MEAN PLATELET VOLUME 10.1 fL (7.9-10.8); MONOCYTES % (AUTO) 6.7 %; NEUTROPHILS % (AUTO) 80.7 %; PLT - PLATELET COUNT 247 10^3/uL (130-450); RED BLOOD COUNT 4.39 10^6/uL (4.20-5.40); RED CELL DISTRIBUTION WIDTH 13.8 % (12.0-15.0); WHITE BLOOD COUNT 26.5 x10^3/uL (4.8-10.8)
[2021-11-17 17:03] LABS: VBG HCO3 21.8 mmol/L (23-28); VBG PCO2 50.4 mmHg (41-51); VBG PH 7.254 (7.31-7.41); VBG PO2 61.1 mmHg (25-47)
[2021-11-17 17:04] LABS: HEMOGLOBIN TOTAL, VENOUS WB 14.2 g/dL (12.0-18.0); METHEMOGLOBIN VENOUS 0.2 % (0-1.5); VBG BASE EXCESS -5.7 mmol/L (-2 - +2); VBG OXYGEN SATURATION 90.8 % (60-80); VBG TOTAL CO2 23.4 mmol/L (24-29)
[2021-11-17 17:08] LABS: ABNORMAL LYMPHS % (MANUAL) 0 %
[2021-11-17 17:14] LABS: INR 1.1 (0.8-1.2); PT - PROTHROMBIN TIME 12.3 secs (9.9-12.6)
[2021-11-17 17:23] LABS: B. PARAPERTUSSIS- RESP PCR PAN NOT DETECTED; B. PERTUSSIS- RESP PCR PANEL NOT DETECTED; C. PNEUMONIAE- RESP PCR PANEL NOT DETECTED; CORONAVIRUS 229E-RESP PCR NOT DETECTED; CORONAVIRUS HKU1-RESP PCR NOT DETECTED; CORONAVIRUS NL63-RESP PCR NOT DETECTED; CORONAVIRUS OC43-RESP PCR NOT DETECTED; HUMAN METAPNEUMOVIRUS NOT DETECTED; INFLUENZA A- RESP PCR PANEL NOT DETECTED; INFLUENZA B - RESP PCR PANEL NOT DETECTED; M. PNEUMONIAE- RESP PCR PANEL NOT DETECTED; PARAINFLUENZA VIRUS 1 NOT DETECTED; PARAINFLUENZA VIRUS 2 NOT DETECTED; PARAINFLUENZA VIRUS 3 NOT DETECTED; PARAINFLUENZA VIRUS 4 NOT DETECTED; RHINOVIRUS/ENTEROVIRUS NOT DETECTED; RSV- RESP PCR PANEL NOT DETECTED; SARS-CoV-2 -RESP PCR PANEL NOT DETECTED
[2021-11-17 17:30] LABS: BAND NEUTROPHILS % (MANUAL) 21 %; LYMPHOCYTES # (MANUAL) 1.3 10^3/uL (1.5-3.5); LYMPHOCYTES % (MANUAL) 4 %; MONOCYTES # (MANUAL) 1.1 10^3/uL (0.0-1.0); NEUTROPHILS # (MANUAL) 24.1 10^3/uL (1.5-6.6); REACTIVE LYMPHS % (MANUAL) 1 %
[2021-11-17 17:31] LABS: DIFFERENTIAL COMMENT MANUAL DIFFERENTIAL; PLATELET ESTIMATE, MANUAL NORMAL (130-450,000) (NORMAL); PLATELET MORPHOLOGY NORMAL APPEARANCE (NORMAL); RBC MORPHOLOGY (MULTIPLE) NORMAL APPEARANCE (NORMAL)
[2021-11-17 17:50] LABS: ACETAMINOPHEN < 10 ug/mL (10-30); ALBUMIN 3.6 g/dL (3.2-5.5); ALKALINE PHOSPHATASE 77 IU/L (42-121); ALT ALANINE AMINOTRANSFERASE 63 IU/L (10-60); AST ASPARTATE AMINOTRANSFERASE 142 IU/L (10-42); BILIRUBIN,TOTAL 0.4 mg/dL (0.2-1.0); BUN - BLOOD UREA NITROGEN 28 mg/dL (6-20); CALCIUM 7.5 mg/dL (8.5-10.3); CARBON DIOXIDE - CO2 22 mmol/L (21-32); CHLORIDE 95 mmol/L (101-111); CREATININE 1.7 mg/dL (0.4-1.0); ETOH - ETHANOL < 5.0 mg/dL; GFR - MDRD 31 (>89); GLUCOSE 168 mg/dL (70-100); MAGNESIUM 1.8 mg/dL (1.7-2.8); POTASSIUM 5.1 mmol/L (3.5-5.0); SALICYLATE < 6.0 mg/dL; SODIUM 133 mmol/L (135-145); TOTAL PROTEIN 7.1 g/dL (6.7-8.2)
[2021-11-17 17:52] LABS: CK- CREATINE KINASE 6059 IU/L (22-269)
--- NOTE | 2021-11-17 17:58 | MRI Report ---
PROCEDURE: Brain W/O INDICATIONS: cva sx TECHNIQUE: Noncontrast axial T1 spin echo, axial T2 fast spin echo, sagittal and axial FLAIR, coronal T2 fast sp in echo, axial gradient echo, axial diffusion and ADC through the brain. COMPARISON: CT angiogram head 11/17/2021. FINDINGS: Image quality: Degraded by patient motion artifact. CSF Spaces: Basal cisterns are patent. No extra-axial fluid collections. Ventricles are normal in size and shape. Brain: No intracranial masses or hemorrhage. There is mild, diffuse supra one month. There are minim al periventricular and subcortical white matter chronic microvascular ischemic changes. Pederson/white ma tter interface is normal. Brainstem appears normal. Small, punctate focus of restricted diffusion no anup in the right occipital lobe. Small, punctate focus of restricted diffusion is noted in the right parietal lobe. No chronic ischemic insults. Normal intravascular flow voids are present. Skull and face: Calvarium has normal marrow signal. Orbits appear normal. Sinuses: Sinuses and mastoids are clear. IMPRESSION: 1. Small acute lacunar infarcts involving the right occipital lobe and the right parietal lobe. 2. No intracranial hemorrhage. 3. Mild, diffuse cerebral and loss. 4. Minimal periventricular and subcortical white matter chronic microvascular ischemic change. Reviewed by: Nani Warner MD, PhD on 11/17/2021 4:57 PM [facility] [place] Approved by: Nani Warner MD, PhD on 11/17/2021 4:57 PM [facility] [place] Station ID: [id number]
[2021-11-17] MEDS ORDERED: SODIUM CHLORIDE 0.9% IV STA (18:38)
[2021-11-17] MEDS ORDERED: CEFEPIME 2 GM in SODIUM CHLORIDE 0.9% MINIBAG 100 ML IV STA (18:38)
[2021-11-17] MEDS ORDERED: metroNIDAZOLE 500 MG/100 ML 500 MG/100 ML BAG IV STA (18:38)
[2021-11-17] MEDS ORDERED: VANCOMYCIN INJ 2 GM in SODIUM CHLORIDE 0.9% 500 ML IV STA (18:39)
[2021-11-17 19:06] LABS: CSF - GLUCOSE 122 mg/dL (45-70); TOTAL PROTEIN,CSF 57 mg/dL (15-45)
[2021-11-17] MEDS ORDERED: ASPIRIN 325 MG TABLET PO STA (19:32)
[2021-11-17 19:35] LABS: CLARITY,CSF CLEAR (CLEAR); COLOR,CSF COLORLESS (COLORLESS); CSF TUBE # CSF TUBE# 3; CSF XANTHOCHROMIA ABSENT (ABSENT); RED BLOOD CELL,CSF 1 /mm^3 (0-1); WHITE BLOOD CELL,CSF 4 /mm^3 (0-5)
[2021-11-17] MEDS: iohexoL-300 100 ML VIAL IVP ONE (21:18)
[2021-11-18 00:19] LABS: CALCIUM 6.7 mg/dL (8.5-10.3); CREATININE 1.1 mg/dL (0.4-1.0); POTASSIUM 4.9 mmol/L (3.5-5.0)
[2021-11-18] MEDS ORDERED: iohexoL-300 100 ML VIAL ONE (00:56)
[2021-11-18] MEDS: iohexoL-300 100 ML VIAL IVP ONE (02:03)
[2021-11-18 05:17] VITALS: BP 167/109
--- NOTE | 2021-11-18 08:19 | CT Report ---
PROCEDURE: ANGIO CHEST W/WO INDICATIONS: tachycardia/hypoxia CONTRAST: IV CONTRAST: Isovue 300 ml: 80 PO CONTRAST: *NO PO CONTRAST TECHNIQUE: After the administration of intravenous contrast, 2 mm axial images were acquired from the pulmonary apices to the posterior costophrenic angles during the arterial phase. In addition, 1 mm lung kernel and 5 mm soft tissue kernel reconstructions were performed. 3-dimensional coronal oblique maximum int ensity projection (MIP) reformats, 8 mm axial MIP, and 5 mm coronal and sagittal MPR reformats were t hen performed through the thorax. For radiation dose reduction, the following was used: automated exp osure control, adjustment of mA and/or kV according to patient size. COMPARISON: CT dated 12/19/2013. FINDINGS: Image quality: Excellent. Pulmonary arteries: Pulmonary arteries are normal in size, and demonstrate no intraluminal filling d efects to suggest central pulmonary embolism. Lungs and pleura: There is moderate right and mild left dependent bilateral lower lobe airspace opaci ties. No pleural effusions or pneumothorax. Central and peripheral airways are patent. Mediastinum: Heart size is normal, without pericardial effusion. Moderate calcification of the coron cornelius vasculature. No mediastinal or hilar adenopathy. Thoracic aorta is normal in caliber and enhance ment. Esophagus is normal in caliber, without hiatal hernia. Bones and chest wall: No suspicious bony lesions. Ribs and thoracic spine appear intact throughout. No axillary or supraclavicular adenopathy. The thyroid is normal in size and there are no incident al findings. Abdomen: Visualized upper abdominal solid organs appear normal in the early arterial phase of enhanc ement. IMPRESSION: 1. No pulmonary embolus. 2. Bibasilar pneumonia. 3. Concordant with preliminary interpretation. Reviewed by: Shania Muller MD on 11/18/2021 8:18 AM PST Approved by: Shania Muller MD on 11/18/2021 8:18 AM PST Station ID: [id number]
[2021-11-20 15:53] LABS: HSV 1 DNA NOT DETECTED; HSV 2 DNA NOT DETECTED; SOURCE CEREBROSPINAL FLUID
== END 2021-11-18 05:40 | disposition short-term general hospital (02) ==
LOC: EDUNIT# → ED 15:13
DX: I21.4 Non-ST elevation (NSTEMI) myocardial infarction (principal); A41.9 Sepsis, unspecified organism; R65.20 Severe sepsis without septic shock; G93.40 Encephalopathy, unspecified; E11.9 Type 2 diabetes mellitus without complications; Z79.84 Long term (current) use of oral hypoglycemic drugs; F15.10 Other stimulant abuse, uncomplicated; R09.02 Hypoxemia; R77.8 Other specified abnormalities of plasma proteins; H91.93 Unspecified hearing loss, bilateral; I63.9 Cerebral infarction, unspecified; M62.82 Rhabdomyolysis
CPT/HCPCS: 0202U; 36415; 62270; 70450; 70496; 70498; 70551; 71045; 71275; 80048; 80053; 80306; 80307; 80320; 80329; 81001; 82375; 82550; 82803; 82945; 83605; 83735; 84157; 84443; 84484; 85025; 85610; 87070; 87205; 87529; 89051; 93005; 96361; 96365; 96366; 96368; 96375; 99291; A9270; J3370; Q9967; 81003; 87040; 87086